=== PATIENT | male | born 2000 | race Caucasian/White ===

== ENCOUNTER 2024-06-10 14:08 | Inpatient (IN) ==
[2024-06-10] MEDS: SODIUM CHLORIDE 0.9% 1,000 ML IV SCH ×3 (14:23→18:03)
[2024-06-10] MEDS ORDERED: GLUCOSE 10 TAB/TUBE PO PRN (14:44)
[2024-06-10] MEDS ORDERED: DEXTROSE 50% 50 ML SYRINGE IV PRN (14:44)
[2024-06-10] MEDS ORDERED: GLUCAGON FOR INJ 1 MG VIAL SQ PRN (14:44)
[2024-06-10] MEDS ORDERED: CARBOHYDRATES FOR HYPOGLYCEMIA PO PRN (14:44)
[2024-06-10] MEDS ORDERED: GLUCOSE 40% GEL 15 GM TUBE PO PRN (14:44)
[2024-06-10 14:46] LABS: iSTAT Creatinine 1.4 mg/dl (0.6-1.3); iSTAT Hemoglobin 18.4 g/dl (14.0-18.0); iSTAT Ionized Calcium 1.08 mmol/l (1.12-1.32); iSTAT Potassium 6.1 mmol/L (3.3-5.0)
[2024-06-10 14:47] LABS: Hematocrit (blood only) 51.1 % (42.0-52.0); Hemoglobin 17.5 g/dl (14.0-18.0); Mean Corpuscular Hemoglobin 32.5 pg (25.0-34.0); Mean Corpuscular Hgb Conc 34.2 g/dL (32.0-36.0); Mean Platelet Volume 10.8 fL (9.4-12.4); Platelet Count 484 K/uL (130-400); RDW Coefficient of Variation 11.9 % (11.5-14.5); RDW Standard Deviation 41.4 fL (36.4-46.3); Red Blood Count 5.38 M/uL (4.70-6.10)
[2024-06-10 14:54] LABS: Oxygen Saturation VBG 67.3 %; PCO2 VBG 37 mmHg (38-50); PO2 VBG 49 mmHg
[2024-06-10 14:58] LABS: Basophils # (auto) 0.15 K/uL (0.00-0.20); Basophils % (auto) 0.4 %; Eosinophils # (auto) 0.03 K/uL (0.00-0.50); Eosinophils % (auto) 0.1 %; Immature Granulocytes # (auto) 0.68 K/uL (0.01-0.20); Immature Granulocytes % (auto) 1.8 %; Lymphocytes # (auto) 2.33 K/uL (1.20-3.40); Lymphocytes % (auto) 6.3 %; Monocytes # (auto) 3.53 K/uL (0.11-0.59); Monocytes % (auto) 9.5 %; Neutrophils # (auto) 30.28 K/uL (1.40-6.50); Neutrophils % (auto) 81.9 %
--- NOTE | 2024-06-10 15:02 | XRay Report ---
XR chest 1V portable CLINICAL HISTORY: Shortness of breath. Diabetic ketoacidosis. COMPARISON STUDY: No previous studies for comparison. FINDINGS: There is no pneumothorax or pleural effusion. There is mild asymmetric left lower lung opac ity. Right lung is clear. Cardiomediastinal silhouette is normal. IMPRESSION: Mild asymmetric left lower lung opacity. This may be technical. However, an infectious p rocess could appear similar. Follow-up PA and lateral chest radiographs could be obtained for further evaluation. ACT 112: Negative or not required by law. Electronically signed by: Kyler Hardy M.D. 06/10/2024 3:00 PM
[2024-06-10 15:03] LABS: pH VBG < 7.00 (7.36-7.41)
[2024-06-10] MEDS ORDERED: AZITHROMYCIN 500 MG VIAL IV ONE (15:09)
[2024-06-10 15:11] LABS: Alanine Aminotransferase 29 U/L (7-52); Albumin Globulin Ratio 1.7 (0.9-2); Albumin Level 5.3 gm/dl (3.4-5.0); Alkaline Phosphatase 106 U/L (34-104); Anion Gap 30 (3-11); BUN Creatinine Ratio 12.9 (10-20); Bilirubin,Total 0.5 mg/dl (0.2-1.0); Blood Urea Nitrogen 23 mg/dl (6-23); Calcium 9.1 mg/dl (8.6-10.3); Carbon Dioxide 8 mmol/L (21-32); Chloride 95 mmol/L (98-107); Creatinine Clr Calc Pharmacy 65.5 ml/min; Globulin 3.1 gm/dl (2.5-4.0); Glucose 551 mg/dl (70-99(Fasting)); Lipase 25 U/L (11-82); Magnesium 2.5 mg/dl (1.7-2.4); Phosphorus 9.3 mg/dl (2.5-4.9); Sodium 133 mmol/L (136-145); Total Protein 8.4 gm/dl (6.0-8.3); Troponin I High Sensitivity 17.4 pg/ml (0-20)
[2024-06-10] MEDS: NovoLIN-R INSULIN PER UNIT CHARGE IV STA (15:13)
[2024-06-10] MEDS: NovoLIN-R BOLUS FROM BAG IV ONE (15:17)
[2024-06-10] MEDS: cefTRIAXone SODIUM 2,000 MG/50 ML BAG IV STA (15:41)
[2024-06-10] MEDS: INSULIN REGULAR 250 UNITS in SODIUM CHLORIDE 0.9% 247.5 ML IV SCH (15:45)
[2024-06-10] MEDS: AZITHROMYCIN 500 MG in SODIUM CHLORIDE 0.9% 250 ML IV ONE (15:47)
[2024-06-10] MEDS: STAT IV Infusion **Titration per Protocol STA (15:49)
[2024-06-10] MEDS: DKA GOAL RANGE 150-250 mg/dl ONE (15:49)
[2024-06-10 15:53] LABS: iSTAT Creatinine 1.4 mg/dl (0.6-1.3); iSTAT Ionized Calcium 1.13 mmol/l (1.12-1.32); iSTAT Potassium 6.4 mmol/L (3.3-5.0)
[2024-06-10 16:10] LABS: Potassium 6.4 mmol/L (3.5-5.1)
--- NOTE | 2024-06-10 16:35 | Emergency Department Note ---
Impression & Plan DKA (diabetic ketoacidosis), Abnormal chest xray, High anion gap metabolic acidosis, Electrolyte disturbance, ARON (acute kidney injury) ED Provider Note NAME: FLAVIO KOVACS AGE: 24 SEX: M : 2000 ARRIVES VIA: Ambulance INFORMANT: Patient, ED PROVIDER(S): Joie Goddard MD CHIEF COMPLAINT: Chest pain, elevated glucose HPI: This is a 24-year-old male with history of type 1 diabetes presenting for elevated glucose and chest pain. Patient notes that he began having nauseousness and vomiting over the course of the night. He realized that his insulin pump was not working. He attempted to fix this but was unsuccessful. He notes he is breathing very rapidly and his chest are beginning to be sore. He notes his blood sugar on last check was over 500. He reports to be in DKA possibly 1 time when he was 15 but this is mild. Nothing like he is currently feeling. He reports feeling somewhat short of breath. No pleurisy. ROS: See above HPI for pertinent positives & negatives. A total of 10 systems reviewed and were otherwise negative. PAST MEDICAL HISTORY: See Below PAST SURGICAL HISTORY: See Below FAMILY HISTORY: See Below SOCIAL HISTORY: See Below HOME MEDICATIONS: See Below ALLERGIES: See Below VITALS: See Below PHYSICAL EXAMINATION: General: Extremis, Kussmaul respirations Head: Normocephalic and atraumatic Eyes: Normal inspection, extraocular muscles intact Ear, nose, throat: Normal external exam Neck: Normal range of motion Respiratory: lungs clear to auscultation bilaterally, tachypneic Cardiovascular: Tachycardic regular rate/rhythm, no murmur GI: soft, nontender, no guarding or rebound Extremities: nontender, moves all extremities Neuro: The patient awake and alert, appropriately conversive, no focal deficits, symmetric faces Skin: Warm, dry, and intact MEDICAL DECISION MAKING: This is a 24-year-old male with history of type 1 diabetes managed for elevated glucose/chest pain. High concern for DKA clinically as patient is glucose is 508 on arrival. He is having significant Kussmaul respirations -[id number] BMP does reveal signs of DKA with initial glucose of 533, anion gap of 24, potassium 6.1 with a corrected sodium of 144. Initial CO2 was 8. -This time we will give fluid resuscitation, 2 L right off the bat. Will give IV insulin bolus and drip. -Patient IV insulin bolus however the lab BMP has hemolyzed potassium. A second [id number] BMP reveals a potassium out of 6.4, glucose is slight downtrending at 479. Anion gap is stable at 23. CO2 downtrending to 7 unfortunately -BMP returns with a CO2 of 8, potassium of 6.4 anion gap of 30. -After 3 L total normal saline as well as IV insulin bolus and drip, patient is appear to be improving. He is still fairly tachypneic but having improved symptoms. He feels better in his chest. Otherwise his heart rate is downtrending from 135 down to 122. -Chest x-ray is read as showing asymmetric opacity possibly concerning for infectious etiology. Will give ceftriaxone and azithromycin out of concern for pneumonia and sepsis. Blood cultures been sent prior to this. In addition has CBC does reveal leukocytosis to over 37. -Care discussed Dr. Hanley, ICU physician who recommends bicarb -Patient given bicarb. -Discussed care with Dr. Alejandra, hospitalist for admission Differential diagnosis: DKA, ACS, PE, pneumonia, sepsis Independent History obtained from: Friend/roommate Diagnostics interpreted by me: ECG: ECG independently interpreted by me with sinus tachycardia rate of 132, normal AL, normal QRS, normal QTc, no ST segment elevations consistent with STEMI criteria Cardiac Monitoring: An order was placed for continuous cardiac monitoring. The monitor shows a rate of 125 with sinus rhythm. Critical Care Note: I have personally spent 90 minutes of critical care time in the direct management of this patient. This includes bedside care, interpretation of diagnostic studies, and testing, discussion with consultants, patient, and family members, and other required patient management activities. This 90 minutes is in excess of all separately billable procedures. Past Med/Surg History Problem List (Updated 06/10/24 @ 21:58 by Joie Goddard MD) Electrolyte disturbance (Acute) High anion gap metabolic acidosis (Acute) Abnormal chest xray (Acute) ARON (acute kidney injury) (Acute) DKA (diabetic ketoacidosis) (Acute) Medical History Type 1 diabetes No known health problems Family History Other No known health problems Social History Smoking Status: Never smoker Tobacco Type: Smokeless Tobacco (Dip or Chew) Do You Dip or Chew Tobacco: No (Pt quit about a year ago); Hx Alcohol Use: Yes Alcohol type: beer Hx Substance Use: No Preferred Language: Portuguese Communication Ability: Effective Stonemason Required: No Beliefs That Will Affect Care: None Current Living Situation: Other Current Living Situation Comment: Pt lives with his room mate and his dog Feels Safe at Home: Yes Assistive Devices: None Allergies Allergies Allergy/AdvReac Type Severity Reaction Status Date / Time No Known Allergies Allergy Unverified 06/10/24 16:27 Home Meds Home Medications Medication Instructions Recorded Confirmed insulin aspart U-100 100 unit/mL 1 sliding scale dose continuous 06/10/24 06/10/24 subcutaneous solution (Novolog subcutaneous infusion USEASDIRECTD U-100 Insulin aspart) Results & Data (ED) Vital Signs Vital Signs - 24 hr 06/10/24 14:18 06/10/24 14:23 06/10/24 14:24 Temperature 36.7 C Temperature Source Oral Pulse Rate 132 H Pulse Rate from SpO2 Sensor Respiratory Rate 20 Blood Pressure 193/118 H 180/115 H Blood Pressure Mean 143 130 Pulse Oximetry 99 99 Oxygen Delivery Method Room Air Room Air Sepsis Recent Fever Within 48 Hours No Sepsis New/Unexplained Change in Mental Status N/A Sepsis Action Taken by Nursing No Action Required 06/10/24 14:27 06/10/24 14:28 06/10/24 14:30 Temperature Temperature Source Pulse Rate 134 H 135 H Pulse Rate from SpO2 Sensor Respiratory Rate 22 Blood Pressure 179/119 H Blood Pressure Mean 143 Pulse Oximetry 100 Oxygen Delivery Method Room Air Sepsis Recent Fever Within 48 Hours Sepsis New/Unexplained Change in Mental Status Sepsis Action Taken by Nursing 06/10/24 14:45 06/10/24 15:00 06/10/24 15:09 Temperature Temperature Source Pulse Rate 125 H 130 H Pulse Rate from SpO2 Sensor Respiratory Rate 34 H 39 H Blood Pressure 186/112 H Blood Pressure Mean 143 Pulse Oximetry 100 99 Oxygen Delivery Method Room Air Room Air Sepsis Recent Fever Within 48 Hours Sepsis New/Unexplained Change in Mental Status Sepsis Action Taken by Nursing 06/10/24 15:18 06/10/24 15:30 06/10/24 15:36 Temperature Temperature Source Pulse Rate 133 H 133 H Pulse Rate from SpO2 Sensor Respiratory Rate 30 H 36 H Blood Pressure 196/116 H Blood Pressure Mean 132 Pulse Oximetry Oxygen Delivery Method Sepsis Recent Fever Within 48 Hours Sepsis New/Unexplained Change in Mental Status Sepsis Action Taken by Nursing 06/10/24 15:36 06/10/24 15:45 06/10/24 15:51 Temperature Temperature Source Pulse Rate 131 H 128 H Pulse Rate from SpO2 Sensor 127 H Respiratory Rate 31 H 37 H Blood Pressure 200/118 H Blood Pressure Mean 126 Pulse Oximetry 99 99 Oxygen Delivery Method Room Air Sepsis Recent Fever Within 48 Hours Sepsis New/Unexplained Change in Mental Status Sepsis Action Taken by Nursing 06/10/24 16:00 06/10/24 16:09 06/10/24 16:12 Temperature Temperature Source Pulse Rate 123 H 123 H Pulse Rate from SpO2 Sensor Respiratory Rate 32 H 38 H Blood Pressure 178/120 H Blood Pressure Mean 139 Pulse Oximetry 99 99 Oxygen Delivery Method Sepsis Recent Fever Within 48 Hours Sepsis New/Unexplained Change in Mental Status Sepsis Action Taken by Nursing 06/10/24 16:21 06/10/24 16:30 06/10/24 17:03 Temperature Temperature Source Pulse Rate 123 H 123 H Pulse Rate from SpO2 Sensor 122 H Respiratory Rate 24 22 Blood Pressure 169/104 H 171/110 H Blood Pressure Mean 110 130 Pulse Oximetry 100 99 Oxygen Delivery Method Room Air Room Air Sepsis Recent Fever Within 48 Hours Sepsis New/Unexplained Change in Mental Status Sepsis Action Taken by Nursing Laboratory Data 06/10/24 14:15 06/10/24 18:58 Lab Results 06/10/24 06/10/24 06/10/24 Range/Units 14:15 14:15 14:15 WBC 37.00 H* (4.8-10.8) K/ul RBC 5.38 (4.70-6.10) M/uL Hgb 17.5 (14.0-18.0) g/dl POC Hgb (14.0-18.0) g/dl Hct 51.1 (42.0-52.0) % POC Hct (42-52) % MCV 95.0 (80.0-100.0) fL MCH 32.5 (25.0-34.0) pg MCHC 34.2 (32.0-36.0) g/dL RDW Std Deviation 41.4 (36.4-46.3) fL RDW Coeff of Radha 11.9 (11.5-14.5) % Plt Count 484 H (130-400) K/uL MPV 10.8 (9.4-12.4) fL Immature Gran % (Auto) 1.8 % Neut % (Auto) 81.9 % Lymph % (Auto) 6.3 % [place] % (Auto) 9.5 % Eos % (Auto) 0.1 % Baso % (Auto) 0.4 % Neut # (Auto) 30.28 H (1.40-6.50) K/uL Lymph # (Auto) 2.33 (1.20-3.40) K/uL [place] # (Auto) 3.53 H (0.11-0.59) K/uL Eos # (Auto) 0.03 (0.00-0.50) K/uL Baso # (Auto) 0.15 (0.00-0.20) K/uL Immature Gran # (Auto) 0.68 H (0.01-0.20) K/uL VBG pH (7.36-7.41) VBG pCO2 (38-50) mmHg VBG pO2 mmHg VBG HCO3 mmol/L VBG O2 Saturation % VBG Base Excess mEq/L POC Sodium (135-144) mmol/L Sodium 133 L (136-145) mmol/L POC Potassium (3.3-5.0) mmol/L Potassium TNP POC Chloride (101-112) mmol/L Chloride 95 L (98-107) mmol/L Carbon Dioxide 8 L* (21-32) mmol/L POC Total CO2 (24-31) mmol/L Anion Gap 30 H (3-11) POC Anion Gap (16-25) mmol/L POC BUN (7-18) mg/dl BUN 23 (6-23) mg/dl Creatinine 1.78 H (0.6-1.4) mg/dl POC Creatinine (0.6-1.3) mg/dl Est Cr Clr Drug Dosing 65.5 ml/min eGFR 53.62 BUN/Creatinine Ratio 12.9 (10-20) Glucose 551 H* (70-99(Fasting)) mg/dl POC Glucose 508 H* (70-99) mg/dl POC Glucose (other) (70-99) mg/dl Estimat Average Glucose 263 266 mg/dl Hemoglobin A1c 10.8 H 10.9 H (4.5-5.6) % Lactate (0.4-2.0) mmol/L Calcium 9.1 (8.6-10.3) mg/dl POC Ioniz Calcium Michael (1.12-1.32) mmol/l Phosphorus 9.3 H (2.5-4.9) mg/dl Magnesium 2.5 H (1.7-2.4) mg/dl Total Bilirubin 0.5 (0.2-1.0) mg/dl AST TNP ALT 29 (7-52) U/L Alkaline Phosphatase 106 H (34-104) U/L Troponin I High Sens 17.4 (0-20) pg/ml Total Protein 8.4 H (6.0-8.3) gm/dl Albumin 5.3 H (3.4-5.0) gm/dl Globulin 3.1 (2.5-4.0) gm/dl Albumin/Globulin Ratio 1.7 (0.9-2) Lipase 25 (11-82) U/L Procalcitonin 2.41 H (0-0.5) ng/ml Adenovirus (PCR) (NotDetected) B. pertussis DNA (PCR) (NotDetected) B.parapertussis DNA PCR (NotDetected) C. pneumoniae DNA (PCR) (NotDetected) Coronavirus OC43 (PCR) (NotDetected) Coronavirus HKU1 (PCR) (NotDetected) Coronavirus 229E (PCR) (NotDetected) SARS-CoV-2 (PCR) (NotDetected) Coronavirus NL63 (PCR) (NotDetected) Human Metapneumovir PCR (NotDetected) Influenza Type A (PCR) (NotDetected) Influenza Type B (PCR) (NotDetected) M. pneumoniae (PCR) (NotDetected) Parainfluenza 1 (PCR) (NotDetected) Parainfluenza 2 (PCR) (NotDetected) Parainfluenza 3 (PCR) (NotDetected) Parainfluenza 4 (PCR) (NotDetected) RSV (PCR) (NotDetected) Entero/Rhino (PCR) (NotDetected) 06/10/24 06/10/24 06/10/24 Range/Units 14:17 14:34 15:26 WBC (4.8-10.8) K/ul RBC (4.70-6.10) M/uL Hgb (14.0-18.0) g/dl POC Hgb 18.4 H (14.0-18.0) g/dl Hct (42.0-52.0) % POC Hct 54 H (42-52) % MCV (80.0-100.0) fL MCH (25.0-34.0) pg MCHC (32.0-36.0) g/dL RDW Std Deviation (36.4-46.3) fL RDW Coeff of Radha (11.5-14.5) % Plt Count (130-400) K/uL MPV (9.4-12.4) fL Immature Gran % (Auto) % Neut % (Auto) % Lymph % (Auto) % [place]ima % (Auto) % Eos % (Auto) % Baso % (Auto) % Neut # (Auto) (1.40-6.50) K/uL Lymph # (Auto) (1.20-3.40) K/uL [place] # (Auto) (0.11-0.59) K/uL Eos # (Auto) (0.00-0.50) K/uL Baso # (Auto) (0.00-0.20) K/uL Immature Gran # (Auto) (0.01-0.20) K/uL VBG pH < 7.00 L (7.36-7.41) VBG pCO2 37 L (38-50) mmHg VBG pO2 49 mmHg VBG HCO3 mmol/L VBG O2 Saturation 67.3 % VBG Base Excess mEq/L POC Sodium 134 L (135-144) mmol/L Sodium (136-145) mmol/L POC Potassium 6.1 H* (3.3-5.0) mmol/L Potassium POC Chloride 109 (101-112) mmol/L Chloride (98-107) mmol/L Carbon Dioxide (21-32) mmol/L POC Total CO2 8 L* (24-31) mmol/L Anion Gap (3-11) POC Anion Gap 24.0 (16-25) mmol/L POC BUN 28 H (7-18) mg/dl BUN (6-23) mg/dl Creatinine (0.6-1.4) mg/dl POC Creatinine 1.4 H (0.6-1.3) mg/dl Est Cr Clr Drug Dosing ml/min eGFR BUN/Creatinine Ratio (10-20) Glucose (70-99(Fasting)) mg/dl POC Glucose 493 H* (70-99) mg/dl POC Glucose (other) 533 H* (70-99) mg/dl Estimat Average Glucose mg/dl Hemoglobin A1c (4.5-5.6) % Lactate (0.4-2.0) mmol/L Calcium (8.6-10.3) mg/dl POC Ioniz Calcium Michael 1.08 L (1.12-1.32) mmol/l Phosphorus (2.5-4.9) mg/dl Magnesium (1.7-2.4) mg/dl Total Bilirubin (0.2-1.0) mg/dl AST ALT (7-52) U/L Alkaline Phosphatase (34-104) U/L Troponin I High Sens (0-20) pg/ml Total Protein (6.0-8.3) gm/dl Albumin (3.4-5.0) gm/dl Globulin (2.5-4.0) gm/dl Albumin/Globulin Ratio (0.9-2) Lipase (11-82) U/L Procalcitonin (0-0.5) ng/ml Adenovirus (PCR) (NotDetected) B. pertussis DNA (PCR) (NotDetected) B.parapertussis DNA PCR (NotDetected) C. pneumoniae DNA (PCR) (NotDetected) Coronavirus OC43 (PCR) (NotDetected) Coronavirus HKU1 (PCR) (NotDetected) Coronavirus 229E (PCR) (NotDetected) SARS-CoV-2 (PCR) (NotDetected) Coronavirus NL63 (PCR) (NotDetected) Human Metapneumovir PCR (NotDetected) Influenza Type A (PCR) (NotDetected) Influenza Type B (PCR) (NotDetected) M. pneumoniae (PCR) (NotDetected) Parainfluenza 1 (PCR) (NotDetected) Parainfluenza 2 (PCR) (NotDetected) Parainfluenza 3 (PCR) (NotDetected) Parainfluenza 4 (PCR) (NotDetected) RSV (PCR) (NotDetected) Entero/Rhino (PCR) (NotDetected) 06/10/24 06/10/24 06/10/24 Range/Units 15:35 15:37 15:39 WBC (4.8-10.8) K/ul RBC (4.70-6.10) M/uL Hgb (14.0-18.0) g/dl POC Hgb 18.0 (14.0-18.0) g/dl Hct (42.0-52.0) % POC Hct 53 H (42-52) % MCV (80.0-100.0) fL MCH (25.0-34.0) pg MCHC (32.0-36.0) g/dL RDW Std Deviation (36.4-46.3) fL RDW Coeff of Radha (11.5-14.5) % Plt Count (130-400) K/uL MPV (9.4-12.4) fL Immature Gran % (Auto) % Neut % (Auto) % Lymph % (Auto) % [place] % (Auto) % Eos % (Auto) % Baso % (Auto) % Neut # (Auto) (1.40-6.50) K/uL Lymph # (Auto) (1.20-3.40) K/uL [place] # (Auto) (0.11-0.59) K/uL Eos # (Auto) (0.00-0.50) K/uL Baso # (Auto) (0.00-0.20) K/uL Immature Gran # (Auto) (0.01-0.20) K/uL VBG pH (7.36-7.41) VBG pCO2 (38-50) mmHg VBG pO2 mmHg VBG HCO3 mmol/L VBG O2 Saturation % VBG Base Excess mEq/L POC Sodium 133 L (135-144) mmol/L Sodium (136-145) mmol/L POC Potassium 6.4 H* (3.3-5.0) mmol/L Potassium 6.4 H* POC Chloride 110 (101-112) mmol/L Chloride (98-107) mmol/L Carbon Dioxide (21-32) mmol/L POC Total CO2 7 L* (24-31) mmol/L Anion Gap (3-11) POC Anion Gap 23.0 (16-25) mmol/L POC BUN 21 H (7-18) mg/dl BUN (6-23) mg/dl Creatinine (0.6-1.4) mg/dl POC Creatinine 1.4 H (0.6-1.3) mg/dl Est Cr Clr Drug Dosing ml/min eGFR BUN/Creatinine Ratio (10-20) Glucose (70-99(Fasting)) mg/dl POC Glucose (70-99) mg/dl POC Glucose (other) 479 H* (70-99) mg/dl Estimat Average Glucose mg/dl Hemoglobin A1c (4.5-5.6) % Lactate 5.3 H* (0.4-2.0) mmol/L Calcium (8.6-10.3) mg/dl POC Ioniz Calcium Michael 1.13 (1.12-1.32) mmol/l Phosphorus (2.5-4.9) mg/dl Magnesium (1.7-2.4) mg/dl Total Bilirubin (0.2-1.0) mg/dl AST 27 ALT (7-52) U/L Alkaline Phosphatase (34-104) U/L Troponin I High Sens (0-20) pg/ml Total Protein (6.0-8.3) gm/dl Albumin (3.4-5.0) gm/dl Globulin (2.5-4.0) gm/dl Albumin/Globulin Ratio (0.9-2) Lipase (11-82) U/L Procalcitonin (0-0.5) ng/ml Adenovirus (PCR) (NotDetected) B. pertussis DNA (PCR) (NotDetected) B.parapertussis DNA PCR (NotDetected) C. pneumoniae DNA (PCR) (NotDetected) Coronavirus OC43 (PCR) (NotDetected) Coronavirus HKU1 (PCR) (NotDetected) Coronavirus 229E (PCR) (NotDetected) SARS-CoV-2 (PCR) (NotDetected) Coronavirus NL63 (PCR) (NotDetected) Human Metapneumovir PCR (NotDetected) Influenza Type A (PCR) (NotDetected) Influenza Type B (PCR) (NotDetected) M. pneumoniae (PCR) (NotDetected) Parainfluenza 1 (PCR) (NotDetected) Parainfluenza 2 (PCR) (NotDetected) Parainfluenza 3 (PCR) (NotDetected) Parainfluenza 4 (PCR) (NotDetected) RSV (PCR) (NotDetected) Entero/Rhino (PCR) (NotDetected) 06/10/24 06/10/24 Range/Units 15:41 16:49 WBC (4.8-10.8) K/ul RBC (4.70-6.10) M/uL Hgb (14.0-18.0) g/dl POC Hgb (14.0-18.0) g/dl Hct (42.0-52.0) % POC Hct (42-52) % MCV (80.0-100.0) fL MCH (25.0-34.0) pg MCHC (32.0-36.0) g/dL RDW Std Deviation (36.4-46.3) fL RDW Coeff of Radha (11.5-14.5) % Plt Count (130-400) K/uL MPV (9.4-12.4) fL Immature Gran % (Auto) % Neut % (Auto) % Lymph % (Auto) % [place] % (Auto) % Eos % (Auto) % Baso % (Auto) % Neut # (Auto) (1.40-6.50) K/uL Lymph # (Auto) (1.20-3.40) K/uL [place] # (Auto) (0.11-0.59) K/uL Eos # (Auto) (0.00-0.50) K/uL Baso # (Auto) (0.00-0.20) K/uL Immature Gran # (Auto) (0.01-0.20) K/uL VBG pH (7.36-7.41) VBG pCO2 (38-50) mmHg VBG pO2 mmHg VBG HCO3 mmol/L VBG O2 Saturation % VBG Base Excess mEq/L POC Sodium (135-144) mmol/L Sodium (136-145) mmol/L POC Potassium (3.3-5.0) mmol/L Potassium POC Chloride (101-112) mmol/L Chloride (98-107) mmol/L Carbon Dioxide (21-32) mmol/L POC Total CO2 (24-31) mmol/L Anion Gap (3-11) POC Anion Gap (16-25) mmol/L POC BUN (7-18) mg/dl BUN (6-23) mg/dl Creatinine (0.6-1.4) mg/dl POC Creatinine (0.6-1.3) mg/dl Est Cr Clr Drug Dosing ml/min eGFR BUN/Creatinine Ratio (10-20) Glucose (70-99(Fasting)) mg/dl POC Glucose 384 H* (70-99) mg/dl POC Glucose (other) (70-99) mg/dl Estimat Average Glucose mg/dl Hemoglobin A1c (4.5-5.6) % Lactate (0.4-2.0) mmol/L Calcium (8.6-10.3) mg/dl POC Ioniz Calcium Michael (1.12-1.32) mmol/l Phosphorus (2.5-4.9) mg/dl Magnesium (1.7-2.4) mg/dl Total Bilirubin (0.2-1.0) mg/dl AST ALT (7-52) U/L Alkaline Phosphatase (34-104) U/L Troponin I High Sens (0-20) pg/ml Total Protein (6.0-8.3) gm/dl Albumin (3.4-5.0) gm/dl Globulin (2.5-4.0) gm/dl Albumin/Globulin Ratio (0.9-2) Lipase (11-82) U/L Procalcitonin (0-0.5) ng/ml Adenovirus (PCR) Not Detected (NotDetected) B. pertussis DNA (PCR) Not Detected (NotDetected) B.parapertussis DNA PCR Not Detected (NotDetected) C. pneumoniae DNA (PCR) Not Detected (NotDetected) Coronavirus OC43 (PCR) Not Detected (NotDetected) Coronavirus HKU1 (PCR) Not Detected (NotDetected) Coronavirus 229E (PCR) Not Detected (NotDetected) SARS-CoV-2 (PCR) Not Detected (NotDetected) Coronavirus NL63 (PCR) Not Detected (NotDetected) Human Metapneumovir PCR Not Detected (NotDetected) Influenza Type A (PCR) Not Detected (NotDetected) Influenza Type B (PCR) Not Detected (NotDetected) M. pneumoniae (PCR) Not Detected (NotDetected) Parainfluenza 1 (PCR) Not Detected (NotDetected) Parainfluenza 2 (PCR) Not Detected (NotDetected) Parainfluenza 3 (PCR) Not Detected (NotDetected) Parainfluenza 4 (PCR) Not Detected (NotDetected) RSV (PCR) Not Detected (NotDetected) Entero/Rhino (PCR) Not Detected (NotDetected) Administered Medications Enoxaparin Sodium (Enoxaparin Inj 40 Mg/0.4 Ml Syr) 40 mg SQ Q24H [facility] Stop: 07/10/24 19:59 Last Admin: 06/10/24 20:01 Dose: 40 mg Documented By: VANESSA Insulin Human Regular 250 (units/ Sodium Chloride) 250 mls @ 6.2 mls/hr IV .Q24H [facility]; Protocol Stop: 07/10/24 14:44 Last Titration: 06/10/24 21:04 Dose: 6.2 units/hr, 6.2 mls/hr Documented By: VANESSA Co-signed By: TMG Titration: 06/10/24 19:53 Dose: 7.7 units/hr, 7.7 mls/hr Documented By: SG Co-signed By: CF Titration: 06/10/24 19:09 Dose: 7.7 units/hr, 7.7 mls/hr Documented By: DMBryon Co-signed By: ARMINDA Titration: 06/10/24 17:58 Dose: 7.7 units/hr, 7.7 mls/hr Documented By: HMS Co-signed By: JUNE Titration: 06/10/24 16:53 Dose: 9.6 units/hr, 9.6 mls/hr Documented By: MIKE Co-signed By: JUNE Admin: 06/10/24 15:45 Dose: 8 units/hr, 8 mls/hr Documented By: ML Co-signed By: [facility] Potassium Chloride 40 meq/ (Dextrose/Sodium Chloride) 1,000 ml in 1,020 mls @ 175 mls/hr IV .Q5H50M [facility] Stop: 07/10/24 20:59 Last Admin: 06/10/24 21:20 Dose: 175 mls/hr Documented By: SG Insulin Aspart (Insulin Aspart Per Unit Charge) 0 units SC ACHS [facility] Stop: 07/10/24 16:29 Last Admin: 06/10/24 21:24 Dose: Not Given Documented By: Admin: 06/10/24 17:42 Dose: Not Given Documented By: [facility] [place] Co-signed By: JUNE Discontinued Medications Sodium Chloride (Nss) 1,000 mls @ 999 mls/hr IV .Q1H1M [facility] Stop: 06/10/24 16:30 Last Infusion: 06/10/24 16:41 Dose: Infused Documented By: [facility] Admin: 06/10/24 14:47 Dose: 999 mls/hr Documented By: Infusion: 06/10/24 14:47 Dose: Infused Documented By: Admin: 06/10/24 14:23 Dose: 999 mls/hr Documented By: ML Ceftriaxone Sodium (Rocephin) 2,000 mg in 50 mls @ 100 mls/hr IV NOW STA Stop: 06/10/24 15:38 Last Infusion: 06/10/24 16:05 Dose: Infused Documented By: [facility] Admin: 06/10/24 15:41 Dose: 100 mls/hr Documented By: ML Azithromycin 500 mg/ Sodium (Chloride) 255 mls @ 127.5 mls/hr IV NOW ONE Stop: 06/10/24 17:29 Last Infusion: 06/10/24 18:36 Dose: Infused Documented By: [facility] Admin: 06/10/24 15:47 Dose: 127.5 mls/hr Documented By: ML Sodium Chloride (Nss) 1,000 mls @ 999 mls/hr IV .Q1H1M [facility] Stop: 06/10/24 17:24 Last Infusion: 06/10/24 18:10 Dose: Infused Documented By: [facility] Admin: 06/10/24 16:41 Dose: 999 mls/hr Documented By: [facility] Sodium Chloride (Nss) 1,000 mls @ 250 mls/hr IV .Q4H [facility] Stop: 06/11/24 17:14 Last Infusion: 06/10/24 21:42 Dose: Infused Documented By: Admin: 06/10/24 18:03 Dose: 250 mls/hr Documented By: [facility] [place] Piperacillin Sod/Tazobactam Sod (Zosyn) 4.5 gm in 100 mls @ 200 mls/hr IV NOW STA; Protocol Stop: 06/10/24 17:48 Last Infusion: 06/10/24 19:05 Dose: Infused Documented By: Admin: 06/10/24 18:00 Dose: 200 mls/hr Documented By: GAYE Sodium Chloride (Nss) 500 mls @ 999 mls/hr IV .Q31M ONE Stop: 06/10/24 20:19 Last Infusion: 06/10/24 21:56 Dose: Infused Documented By: Admin: 06/10/24 21:20 Dose: 999 mls/hr Documented By: VANESSA Insulin Human Regular (Novolin-R Bolus From Bag) 8 units IV ONE ONE Stop: 06/10/24 15:16 Last Admin: 06/10/24 15:17 Dose: Not Given Documented By: AAKASH Insulin Human Regular (Novolin-R Insulin Per Unit Charge) 8 units IV NOW STA Stop: 06/10/24 15:11 Last Admin: 06/10/24 15:13 Dose: 8 units Documented By: AAKASH Co-signed By: JARED Martínez (Stat Iv Infusion Titration Per Protocol) 1 each N/A NOW STA Stop: 06/10/24 14:45 Last Admin: 06/10/24 15:49 Dose: Not Given Documented By: MIKE Miscellaneous (Dka Goal Range 150-250 Mg/Dl) 1 each N/A ONE ONE Stop: 06/10/24 14:45 Last Admin: 06/10/24 15:49 Dose: Not Given Documented By: MIKE Sodium Bicarbonate (Sodium Bicarb 8.4% Inj 50 Meq/50 Ml Syr) 50 meq IV NOW STA Stop: 06/10/24 16:43 Last Admin: 06/10/24 16:51 Dose: 50 meq Documented By: MIKE Imaging Data Radiologist's Impression: Chest X-Ray 06/10/24 14:18 XR chest 1V portable CLINICAL HISTORY: Shortness of breath. Diabetic ketoacidosis. COMPARISON STUDY: No previous studies for comparison. FINDINGS: There is no pneumothorax or pleural effusion. There is mild asymmetric left lower lung opacity. Right lung is clear. Cardiomediastinal silhouette is normal. IMPRESSION: Mild asymmetric left lower lung opacity. This may be technical. However, an infectious process could appear similar. Follow-up PA and lateral chest radiographs could be obtained for further evaluation. ACT 112: Negative or not required by law. Electronically signed by: Kyler Hardy M.D. 06/10/2024 3:00 PM Discharge Plan Visit Data Chief Complaint: Hyperglycemia Stated Complaint: SOB, HYPERGLYCEMIA ED Provider: Joie Goddard Discharge Problem: DKA (diabetic ketoacidosis), Abnormal chest xray, High anion gap metabolic acidosis, Electrolyte disturbance, ARON (acute kidney injury) Patient Disposition: Admitted As Inpatient Discharge Instructions Interventions: ED Discharge Assessment Last Done: 06/10/24 18:17
[2024-06-10 16:40] LABS: Adenovirus PCR Not Detected (NotDetected); Bordetella parapertussis PCR Not Detected (NotDetected); Bordetella pertussis PCR Not Detected (NotDetected); Chlamydia pneumoniae PCR Not Detected (NotDetected); Coronavirus 229E PCR Not Detected (NotDetected); Coronavirus CoV-2 (COVID19)PCR Not Detected (NotDetected); Coronavirus HKU1 PCR Not Detected (NotDetected); Coronavirus NL63 PCR Not Detected (NotDetected); Coronavirus OC43PCR Not Detected (NotDetected); Human Metapneumovirus PCR Not Detected (NotDetected); Influenza A PCR Not Detected (NotDetected); Influenza B PCR Not Detected (NotDetected); Mycoplasma pneumoniae PCR Not Detected (NotDetected); Parainfluenza Virus 1 PCR Not Detected (NotDetected); Parainfluenza Virus 2 PCR Not Detected (NotDetected); Parainfluenza Virus 3 PCR Not Detected (NotDetected); Parainfluenza Virus 4 PCR Not Detected (NotDetected); Respiratory Syncytial VirusPCR Not Detected (NotDetected); Rhinovirus/Enterovirus PCR Not Detected (NotDetected)
[2024-06-10 16:49] LABS: Estimated Average Glucose 263 mg/dl; Hemoglobin A1C 10.8 % (4.5-5.6)
[2024-06-10] MEDS: SODIUM BICARB 8.4% INJ 50 MEQ/50 ML SYR IV STA (16:51)
--- NOTE | 2024-06-10 16:54 | History & Physical Report ---
Date of Service June 10, 2024 Assessment & Plan (1) DKA (diabetic ketoacidosis): (2) High anion gap metabolic acidosis: (3) ARON (acute kidney injury): Plan Mr. Maciel is a 24 year old gentleman with past medical history remarkable for DMTI on insulin pump and hypertension to be admitted to ICU for management of DKA Given lack of pcp and reported issues with insulin pump, would question med compliance as possible contributing cause. Reports sick contact at work 1 week ago, therefore infection possible contributor to DKA # Diabetic Ketoacidosis SOB, chest pain, nausea, diarrhea, found to have significant hyperglycemia. pH <7, AG 30, suspect med inadherence and possible infectious symptoms v just 2/2 DKA; low concern WI. No history of heart failure or evidence of volume overload. -Biofire negative - Trend CBC, CMP, VBG - UA, Utox ordered - CXR with LLL opacity, chest xray stable - BCx pending, MRSA swab ordered - Troponin 17.4 - A1c 10.8% - Empiric zosyn for now - Monitor K - DKA protocol insulin drip - s/p NaHCO3 for pH<7 - IVF: s/p NS 1L/hr x 4h; starting NS 250/hr - Holding Home insulin regimen: graphics artist consulted #Leukocytosis Biofire neg, WBC 30, reports of GI symptoms though potentially iso DKA--exam benign therefore will hold on further imaginge CXR with opacity, but non apparent on ct chest continue empirics follow blood cultures anticipate prompt resolution with rehydration #ARON cr 1.78 likely iso dehydration 2/2 DKA repeat BMP and fluid resuscitation #HTN Reportedly on lisinopril Consider antihypertensive as clinical course stabilizes and elevated bp at this time likley iso resp distress DVT lovenox Full code Admit ICU Admission and Anticipated Discharge Date Admission Date: Time spent evaluating patient, direct bedside care, chart review, placing orders, interpretation of diagnostic studies, discussion with consultants, patient, and family members, as well as other required patient management activities is 60 minutes. History of Present Illness Chief Complaint: SOB Primary Care Provider: NO PCP Mr. Maciel is a 24 year old gentleman with past medical history remarkable for DMTI on insulin pump and hypertension presented to [facility] ED due to SOB. Patient states that over last 24 hours he has been more SOB. He states that he also experienced some nausea and diarrhea, but ultimately he began to feel like he could not catch his breath.He denies fevers, cough, myalgias, or other clear symptoms. He does not have a PCP. 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 He states that he knows his regimen isn't as "tight as it should be" because his last A1C was reported 9% He notes that he did have difficult getting his pump to fit in the last 24 hours. Patient also reports chest pain that occurred shortly after the SOB started. He denies any increased thirst or polyuria. He also reports history of HTN. He does not take his lisinopril any longer as previously prescribed, stating that the supplements with "chagas" and "lion mulu" mushrooms. Roommate at bedside stating patient appears much improved in comparison to arrival. History limited 2/2 SOB Denies tobacco use; reports social etoh use; denies any other substance use In the ED, vitals were notable for BP of 140-200, HR of 110-130, and O2 sat of high 90s on RA . Imaging revealed CXR with LLL opacity, CT chest however unremarkable WBC 37 with shift, VBG <7.0, PCO2 37, NA 133, K 6.4 EKG sinus tachy, poor baseline likely 2/2 labored breathing qtc 447 ED interventions: 4 L IVF, ctx, azithro, bicarb 50meq Consultants: Bag Bleacher Patient to be admitted to ICU for further evaluation and management of severe DKA Allergies Allergy/AdvReac Type Severity Reaction Status Date / Time No Known Allergies Allergy Unverified 06/10/24 16:27 Home Medications Medication Instructions Recorded Confirmed Type insulin aspart U-100 100 unit/mL 1 sliding scale dose continuous 06/10/24 06/10/24 History subcutaneous solution (Novolog subcutaneous infusion USEASDIRECTD U-100 Insulin aspart) Past Med/Surg History Problem List Electrolyte disturbance High anion gap metabolic acidosis Abnormal chest xray ARON (acute kidney injury) DKA (diabetic ketoacidosis) Medical History Type 1 diabetes No known health problems Family History Other No known health problems Social History Smoking Status: Never smoker Preferred Language: Ukrainian Feels Safe at Home: Yes Review of Systems Review of Systems: Constitutional: (-) fever/chills, (-) recent loss of weight, (-) appetite changes, (-) night sweats. Head: (-) headache, (-) dizziness. Eye: (-) blurring of vision, (-) double vision, (-) redness. Ear: (-) hearing loss, (-) discharge, (-) vertigo Nose: (-) discharge, (-) bleeding, (-) congestion, (-) post nasal drip. Throat: (-) sore throat, (-) hoarseness of voice, (-) odynophagia. Cardiovascular: (+) chest pain, (-) palpitations, (-) syncope, (-) orthopnea, (- ) PND, (-) leg swelling. Respiratory: (++) shortness of breath, (-) cough, (-) wheezing, (-) hemoptysis. Neuro: (-) weakness in extremities, (-) numbness, (-) tingling, (-) tremor. Gastrointestinal: (-) belly pain, (-) belly distension, (+) nausea, (-) vomiting, (+) diarrhea, (-) constipation, Genitourinary: (-) hematuria, (-) dysuria, (-) polyuria, (-) hesitancy, (-) frequency, (-) urinary incontinence. Musculoskeletal: (-) myalgia, (-) arthralgia. Skin: (-) rashes. Endocrine: (-) heat/cold intolerance. Psychiatry: (-) depression, (-) hallucination. Physical Exam Physical Exam: GENERAL APPEARANCE: AxOx4, uncomfortable, labored breathing HEENT: NC, AT. MMM. EOMI, clear conjunctiva, oropharynx clear. NECK: Supple without lymphadenopathy. No stiffness or restricted ROM. HEART: tachycardic LUNGS: CTAB, labored, tachypneic ABDOMEN: Soft, nontender, nondistended with good bowel sounds heard. EXTREMITIES: Without cyanosis, clubbing or edema. NEUROLOGICAL: Grossly nonfocal. Alert and oriented, moving all 4 extremities. CN not formally tested but appear grossly intact Skin: Warm and dry without any rash. Results & Data Results & Data Vital Signs (Past 12 Hours) Vital Signs Temp Pulse Resp BP Pulse Ox O2 Del Method 06/10/24 16:12 123 H 38 H 99 06/10/24 16:09 123 H 32 H 99 06/10/24 16:00 178/120 H 06/10/24 15:51 128 H 37 H 99 06/10/24 15:45 131 H 31 H 99 Room Air 06/10/24 15:36 200/118 H 06/10/24 15:36 133 H 36 H 06/10/24 15:30 133 H 30 H 06/10/24 15:18 196/116 H 06/10/24 15:09 130 H 39 H 99 Room Air 06/10/24 15:00 186/112 H 06/10/24 14:45 125 H 34 H 100 Room Air 06/10/24 14:30 179/119 H 06/10/24 14:28 135 H 06/10/24 14:27 134 H 22 100 Room Air 06/10/24 14:24 180/115 H 06/10/24 14:23 99 Room Air 06/10/24 14:18 36.7 C 132 H 20 193/118 H 99 Room Air Laboratory Results Short CBC 06/10/24 Range/Units 14:15 WBC 37.00 H* (4.8-10.8) K/ul Hgb 17.5 (14.0-18.0) g/dl Hct 51.1 (42.0-52.0) % Plt Count 484 H (130-400) K/uL BMP 06/10/24 06/10/24 14:15 15:35 Sodium 133 L Potassium TNP 6.4 H* Chloride 95 L Carbon Dioxide 8 L* BUN 23 Creatinine 1.78 H Glucose 551 H* Calcium 9.1 Liver Function 06/10/24 06/10/24 Range/Units 14:15 15:35 Total Bilirubin 0.5 (0.2-1.0) mg/dl AST TNP 27 ALT 29 (7-52) U/L Alkaline Phosphatase 106 H (34-104) U/L Albumin 5.3 H (3.4-5.0) gm/dl Diagnostic Findings Chest X-Ray 06/10/24 14:18 XR chest 1V portable CLINICAL HISTORY: Shortness of breath. Diabetic ketoacidosis. COMPARISON STUDY: No previous studies for comparison. FINDINGS: There is no pneumothorax or pleural effusion. There is mild asymmetric left lower lung opacity. Right lung is clear. Cardiomediastinal silhouette is normal. IMPRESSION: Mild asymmetric left lower lung opacity. This may be technical. However, an infectious process could appear similar. Follow-up PA and lateral chest radiographs could be obtained for further evaluation. ACT 112: Negative or not required by law. Electronically signed by: Kyler Hardy M.D. 06/10/2024 3:[address] 06/10/24 17:15 EXAMINATION: Chest CT without CLINICAL HISTORY: Shortness of breath TECHNIQUE: Contiguous axial images were obtained through the chest without the use of intravenous contrast. Sagittal and coronal reformations are supplied. FINDINGS: The chest is well-expanded. No pneumothorax, opacification or pleural effusion. No dominant mass or adenopathy. No pleural or pericardial effusion. Heart size within normal limits. Trachea and mainstem bronchi patent. Possible hepatomegaly not fully within the [id number]. In bone windows, no acute osseous abnormality. No rib or sternal fracture. No chest wall inflammatory change. IMPRESSION: No CT evidence of an acute cardiopulmonary process. Electronically signed by Zarina Daily 06-10-2024 5:49 PM Medications Administered Home Medications Medication Instructions Recorded Confirmed Last Taken insulin aspart U-100 100 unit/mL 1 sliding scale dose continuous 06/10/24 06/10/24 Unknown subcutaneous solution (Novolog subcutaneous infusion USEASDIRECTD U-100 Insulin aspart) Active Medications Generic Name Dose Route Start Last Admin Trade Name Freq PRN Reason Stop Dose Admin Insulin Human Regular 250 250 mls @ 8 mls/hr 06/10/24 14:45 06/10/24 17:58 units/ Sodium Chloride IV 07/10/24 14:44 7.7 units/hr .Q24H WALLY 7.7 mls/hr Titration Protocol 8 UNITS/HR Insulin Aspart 0 units 06/10/24 16:30 06/10/24 17:42 Insulin Aspart Per Unit Charge SC 07/10/24 16:29 Not Given ACHS WALLY
--- NOTE | 2024-06-10 16:58 | Electrocardiogram Report ---
Test Reason : Blood Pressure : */* mmHG Vent. Rate : 132 BPM Atrial Rate : 132 BPM P-R Int : 130 ms QRS Dur : 90 ms QT Int : 302 ms P-R-T Axes : 73 32 17 degrees QTcB Int : 447 ms Sinus tachycardia Abnormal ECG No previous ECGs available Confirmed by Geovanny Hamlin ([id number]) on 06/10/2024 4:57:43 PM Referred By: Confirmed By: Geovanny Hamlin
--- NOTE | 2024-06-10 17:36 | Critical Care Consultation ---
Date of Consultation June 10, 2024 Assessment & Plan (1) DKA (diabetic ketoacidosis): (2) ARON (acute kidney injury): (3) Abnormal chest xray: (4) High anion gap metabolic acidosis: (5) Electrolyte disturbance: Plan Reason Critically Ill: 24 YOM with history of DMI with insulin pump. Patient admitted to ICU for DKA, management of acid base disturbance and electroltyte disturbance. Neuro - No acute needs CAM ICU: NEGATIVE Cardiac - Shock multifactorial, HX HTN - Patient technically meets SIRS in setting of DKA as well. He also has elevated WBC as well as elevated PCT so can't entirely exclude possible infectious cause as well with source possibly pulmonary - Patient will require more crystalloid in setting of DKA - currently received 2.5 Liters- re-evaluate on arrival to ICU - Lactate 4.1 which is downtrending from 5.3- continue to trend - organ dysfunction with ARON- continue supportive care - HX of HTN on Lisinopril - hold with ARON- BP on re-evaluation and without stimulation BP in the 130s. Respiratory - As above, abnormal CXR concern for CAP - Continue Zosyn and Azithromycin at this time- await for CT chest - tachypnea likely result of DKA - CT chest pending for better evaluation of this LLL opacity GI - NO acute needs - abdominal pain resolving following IVF and insulin RENAL/LYTES - ARON, multiple electrolyte disturbances, HAGAP metabolic acidosis - As above likely all result of DKA - He has received 1 amp of HCO3 in EMD for HCO3- 8; PH <7.0- follow VBG q4 hours consider further HCO3 to assist with acidosis however insulin and furhter IVF should assist - BMP q4 hours replete electrolytes as needed - ETOH level pending - Tox screen pending - Follow lactate and renal functions- low suspicion for ingestion at this time however if follow closely as above - No acute needs at this time - Patient has voided x1 following 2.5 liters crystalloid - UA pending ENDO - DMI, with DKA - As above - Continue with insulin drip as above- 0.1 units/kg - goal not to decrease >150mdl per hour - IVF - saline until BG reaches 250 then add dextrose containing fluid HEME - No acute needs - Leukocytosis - see below likely more elevated secondary to hemoconcentration ID - SIRS, - Patient with SIRS, leukocytosis, elevated PCT - ? LLL opacity on CXR - await CT scan of chest - Urine for UA - Blood cultures pending - Continue Zosyn - Hold Azithromycin for now- he received dose in ER which will cover until AM, follow imaging as above and fever curve. LINES/IV ACCESS - Continue use of these lines DVT PROPHYLAXIS - SCDS, ambulation DISPO: ICU while requiring insulin infusion, until GAP is closed and electrolytes/acid base status stable. I have personally spent 45minutes of critical care time in the direct management of this patient. This is a life/limb threatening event. This includes time spent evaluating patient, direct bedside care, chart review, placing orders, interpretation of diagnostic studies, discussion with consultants, patient, and family members, as well as other required patient management activities. This time is exclusive of all separately billable procedures, and teaching time and separate from and in addition to any other critical care service time. Thank you for allowing us to participate in the care of this patient. Please refer to my attending physician's documentation for any further recommendations. History of Present Illness Reason for Consultation: DKA Requesting Physician: Deb Alejandra MD Attending Physician: Deb Alejandra MD History of Present Illness 24 YOM with history of: DMI with insulin pump. Patient reports that he is here for meeting and reports history of some difficulty with his "insulin pump getting through his skin secondary to scar tissue". The patient reports that last night he started to feel nauseated and had diarrhea and noting that his blood sugar levels were going up. He attempted to drink water and changed his pump. Initially he states that he started feeling better and went to bed, this morning he reports that he felt worse, had some more diarrhea and started to feel like he couldn't catch his breath or take a deep enough breath in, so he came to the ER. In the ER the patient had routine labs performed, CXR and ECG. He was noted to have glucose > 500, HCO3 <10, PH <7.0, WBC 30 and elevated PCT. Patient was given 2.5 Liters of crystalloid bolus, initiated on insulin drip at 0.1units/kg. Was given Rocephin and Azithromycin for concerns of LLL pneumonia. Patient reports generally feeling well until last night, voices no other symptoms of feeling ill. He reports being on small dose of Lisinopril for his blood pressure and uses herbal/botanicals to help control his BP. He reports some alcohol intake, but has gone days before without drinking and no effects of withdraw, and denies any other substance use. Patient will come to ICU for continued resuscitation, management of acid base disturbance, electrolyte disturbances, and insulin infusion. CODE: FULL Allergies Allergy/AdvReac Type Severity Reaction Status Date / Time No Known Allergies Allergy Unverified 06/10/24 16:27 Home Medications Medication Instructions Recorded Confirmed Type insulin aspart U-100 100 unit/mL 1 sliding scale dose continuous 06/10/24 06/10/24 History subcutaneous solution (Novolog subcutaneous infusion USEASDIRECTD U-100 Insulin aspart) Patient History Medical History Type 1 diabetes No known health problems Family History Other No known health problems Social History Smoking Status: Never smoker Tobacco Type: Smokeless Tobacco (Dip or Chew) Do You Dip or Chew Tobacco: No (Pt quit about a year ago); Hx Alcohol Use: Yes Alcohol type: beer Hx Substance Use: No Preferred Language: Yemeni Communication Ability: Effective Cranberry Grower Required: No Beliefs That Will Affect Care: None Current Living Situation: Other Current Living Situation Comment: Pt lives with his room mate and his dog Feels Safe at Home: Yes Assistive Devices: None Review of Systems Review of Systems: REVIEW OF SYSTEMS: Constitutional: No fever, sweats or chills Eyes: No diplopia, no worsening or blurred vision ENT: normal hearing, no trouble swallowing Respiratory: (+) dyspnea at rest or on exertion, No cough, sputum, Cardiovascular: (+) tightness, No chest pain, or palpitations Abdomen: pain, diarrhea, No nausea, vomiting, diarrhea or constipation Musculoskeletal: No joint pain, calf pain, swelling Neurologic: No weakness, numbness/tingling, or balance problems Psychiatric: No anxiety or depression Skin: No rash or itch Physical Exam Physical Exam: PHYSICAL EXAM: General: awake, alert, tachypneic Head: Normocephalic, atraumatic ENT: PERRLA, EOMI, no pharyngeal exudate, mucous membranes dry Neuro: AAO x 3, speech clear and appropriate, strength intact bilaterally 5/5, sensation intact and equal all extremities and dermatomes, no pronator drift Chest: Tachypneic, equal rise and fall of the chest, no accessory muscle use, Clear to auscultation, on room air, Cardiac: Regular rate and rhythm, telemetry reviewed- sinus tachycardia, skin warm dry, cap refill <3 seconds, peripheral pulses +2 no JVD, no murmur, no edema GI: NABS x 4 quadrants, soft, nontender to palpation, no rebound, guarding or tenderness : Spontaneously voiding, no pain, no CVA tenderness, Extremities: Normal inspection, no peripheral edema or erythema, calfs nontender to palpation Psych: Normal mood and affect Skin: no rash or erythema Results & Data Results & Data Vital Signs (Past 12 Hours) Vital Signs Temp Pulse Resp BP Pulse Ox O2 Del Method 06/10/24 16:30 169/104 H 06/10/24 16:21 123 H 24 100 Room Air 06/10/24 16:12 123 H 38 H 99 06/10/24 16:09 123 H 32 H 99 06/10/24 16:00 178/120 H 06/10/24 15:51 128 H 37 H 99 06/10/24 15:45 131 H 31 H 99 Room Air 06/10/24 15:36 200/118 H 06/10/24 15:36 133 H 36 H 06/10/24 15:30 133 H 30 H 06/10/24 15:18 196/116 H 06/10/24 15:09 130 H 39 H 99 Room Air 06/10/24 15:00 186/112 H 06/10/24 14:45 125 H 34 H 100 Room Air 06/10/24 14:30 179/119 H 06/10/24 14:28 135 H 06/10/24 14:27 134 H 22 100 Room Air 06/10/24 14:24 180/115 H 06/10/24 14:23 99 Room Air 06/10/24 14:18 36.7 C 132 H 20 193/118 H 99 Room Air Laboratory Results Abnormal lab results 06/10/24 06/10/24 06/10/24 Range/Units 14:15 14:17 14:34 WBC 37.00 H* (4.8-10.8) K/ul POC Hgb 18.4 H (14.0-18.0) g/dl POC Hct 54 H (42-52) % Plt Count 484 H (130-400) K/uL Neut # (Auto) 30.28 H (1.40-6.50) K/uL [place] # (Auto) 3.53 H (0.11-0.59) K/uL Immature Gran # (Auto) 0.68 H (0.01-0.20) K/uL VBG pH < 7.00 L (7.36-7.41) VBG pCO2 37 L (38-50) mmHg POC Sodium 134 L (135-144) mmol/L Sodium 133 L (136-145) mmol/L POC Potassium 6.1 H* (3.3-5.0) mmol/L Potassium (3.5-5.1) mmol/L Chloride 95 L (98-107) mmol/L Carbon Dioxide 8 L* (21-32) mmol/L POC Total CO2 8 L* (24-31) mmol/L Anion Gap 30 H (3-11) POC BUN 28 H (7-18) mg/dl Creatinine 1.78 H (0.6-1.4) mg/dl POC Creatinine 1.4 H (0.6-1.3) mg/dl Glucose 551 H* (70-99(Fasting)) mg/dl POC Glucose 508 H* (70-99) mg/dl POC Glucose (other) 533 H* (70-99) mg/dl Hemoglobin A1c 10.8 H (4.5-5.6) % Lactate (0.4-2.0) mmol/L POC Ioniz Calcium Michael 1.08 L (1.12-1.32) mmol/l Phosphorus 9.3 H (2.5-4.9) mg/dl Magnesium 2.5 H (1.7-2.4) mg/dl Alkaline Phosphatase 106 H (34-104) U/L Total Protein 8.4 H (6.0-8.3) gm/dl Albumin 5.3 H (3.4-5.0) gm/dl Procalcitonin 2.41 H (0-0.5) ng/ml 06/10/24 06/10/24 06/10/24 Range/Units 15:26 15:35 15:37 WBC (4.8-10.8) K/ul POC Hgb (14.0-18.0) g/dl POC Hct (42-52) % Plt Count (130-400) K/uL Neut # (Auto) (1.40-6.50) K/uL [place] # (Auto) (0.11-0.59) K/uL Immature Gran # (Auto) (0.01-0.20) K/uL VBG pH (7.36-7.41) VBG pCO2 (38-50) mmHg POC Sodium (135-144) mmol/L Sodium (136-145) mmol/L POC Potassium (3.3-5.0) mmol/L Potassium 6.4 H* (3.5-5.1) mmol/L Chloride (98-107) mmol/L Carbon Dioxide (21-32) mmol/L POC Total CO2 (24-31) mmol/L Anion Gap (3-11) POC BUN (7-18) mg/dl Creatinine (0.6-1.4) mg/dl POC Creatinine (0.6-1.3) mg/dl Glucose (70-99(Fasting)) mg/dl POC Glucose 493 H* (70-99) mg/dl POC Glucose (other) (70-99) mg/dl Hemoglobin A1c (4.5-5.6) % Lactate 5.3 H* (0.4-2.0) mmol/L POC Ioniz Calcium Michael (1.12-1.32) mmol/l Phosphorus (2.5-4.9) mg/dl Magnesium (1.7-2.4) mg/dl Alkaline Phosphatase (34-104) U/L Total Protein (6.0-8.3) gm/dl Albumin (3.4-5.0) gm/dl Procalcitonin (0-0.5) ng/ml 06/10/24 06/10/24 06/10/24 Range/Units 15:39 16:49 17:18 WBC (4.8-10.8) K/ul POC Hgb (14.0-18.0) g/dl POC Hct 53 H (42-52) % Plt Count (130-400) K/uL Neut # (Auto) (1.40-6.50) K/uL [place] # (Auto) (0.11-0.59) K/uL Immature Gran # (Auto) (0.01-0.20) K/uL VBG pH (7.36-7.41) VBG pCO2 (38-50) mmHg POC Sodium 133 L (135-144) mmol/L Sodium (136-145) mmol/L POC Potassium 6.4 H* (3.3-5.0) mmol/L Potassium (3.5-5.1) mmol/L Chloride (98-107) mmol/L Carbon Dioxide (21-32) mmol/L POC Total CO2 7 L* (24-31) mmol/L Anion Gap (3-11) POC BUN 21 H (7-18) mg/dl Creatinine (0.6-1.4) mg/dl POC Creatinine 1.4 H (0.6-1.3) mg/dl Glucose (70-99(Fasting)) mg/dl POC Glucose 384 H* (70-99) mg/dl POC Glucose (other) 479 H* (70-99) mg/dl Hemoglobin A1c (4.5-5.6) % Lactate 4.1 H* (0.4-2.0) mmol/L POC Ioniz Calcium Michael (1.12-1.32) mmol/l Phosphorus (2.5-4.9) mg/dl Magnesium (1.7-2.4) mg/dl Alkaline Phosphatase (34-104) U/L Total Protein (6.0-8.3) gm/dl Albumin (3.4-5.0) gm/dl Procalcitonin (0-0.5) ng/ml Medications Administered Home Medications insulin aspart U-100 100 unit/mL subcutaneous solution (Novolog U-100 Insulin aspart) 1 sliding scale dose continuous subcutaneous infusion USEASDIRECTD 06/10/24 [History Confirmed 06/10/24] Active Medications Dextrose (Dextrose 50% 50 Ml Syringe) 25 - 50 ml IV UD PRN; Protocol PRN Reason: Hypoglycemia Protocol Stop: 07/10/24 14:43 Glucagon (Glucagon For Inj 1 Mg Vial) 1 mg SQ UD PRN; Protocol PRN Reason: Hypoglycemia Protocol Stop: 07/10/24 14:43 Glucose (Glucose 40% Gel 15 Gm Tube) 15 - 30 gm PO UD PRN; Protocol PRN Reason: Hypoglycemia Protocol Stop: 07/10/24 14:43 Glucose (Glucose 10 Tab/Tube) 4 - 8 tab PO UD PRN; Protocol PRN Reason: Hypoglycemia Protocol Stop: 07/10/24 14:43 Insulin Human Regular 250 (units/ Sodium Chloride) 250 mls @ 8 mls/hr IV .Q24H WALLY; Protocol Stop: 07/10/24 14:44 Last Titration: 06/10/24 16:53 Dose: 9.6 units/hr, 9.6 mls/hr Piperacillin Sod/Tazobactam Sod (Zosyn) 4.5 gm in 100 mls @ 25 mls/hr IV Q8H WALLY; Protocol Stop: 06/13/24 00:00 Sodium Chloride (Nss) 1,000 mls @ 250 mls/hr IV .Q4H WALLY Stop: 06/11/24 17:14 Insulin Aspart (Insulin Aspart Per Unit Charge) 0 units SC ACHS WALLY Stop: 07/10/24 16:29 Last Admin: 06/10/24 17:42 Dose: Not Given Miscellaneous (Carbohydrates For Hypoglycemia ) 15 - 30 gm PO UD PRN PRN Reason: Hypoglycemia Protocol Stop: 07/10/24 14:43 Miscellaneous (Icu Protocol For Hyperglycemia) 1 each N/A [facility] Stop: 06/12/24 20:59 ECG Additional Comments: Sinus tachycardia Abnormal ECG No previous ECGs available Confirmed by Geovanny Hamlin ([id number]) on 06/10/2024 4:57:43 PM Coding Level of Care Code 26841 CRITICAL CARE 1ST 30-74M Diagnoses DKA (diabetic ketoacidosis) E11.10 ARON (acute kidney injury) N17.9 Abnormal chest xray R93.89 High anion gap metabolic acidosis E87.29 Electrolyte disturbance E87.8
[2024-06-10] MEDS: INSULIN ASPART PER UNIT CHARGE SC SCH (17:42)
--- NOTE | 2024-06-10 17:51 | CT Scan Report ---
EXAMINATION: Chest CT without CLINICAL HISTORY: Shortness of breath TECHNIQUE: Contiguous axial images were obtained through the chest without the use of intravenous contrast. Sagittal and coronal reformations are supplied. FINDINGS: The chest is well-expanded. No pneumothorax, opacification or pleural effusion. No dominant mass or adenopathy. No pleural or pericardial effusion. Heart size within normal limits. Trachea and mainstem bronchi patent. Possible hepatomegaly not fully within the [id number]. In bone windows, no acute osseous abnormality. No rib or sternal fracture. No chest wall inflammatory change. IMPRESSION: No CT evidence of an acute cardiopulmonary process. Electronically signed by Zarina Daily 06-10-2024 5:49 PM
[2024-06-10] MEDS: PIPERACILLIN/TAZOBACTAM 4.5 GM/100 ML BAG IV STA (18:00)
[2024-06-10] MEDS ORDERED: ONDANSETRON INJ 2 MG/ML 2 ML VIAL IV PRN (18:27)
[2024-06-10] MEDS ORDERED: STAT IV Infusion **Titration per Protocol STA (18:27)
[2024-06-10] MEDS ORDERED: DKA GOAL RANGE 150-250 mg/dl ONE (18:27)
[2024-06-10] MEDS ORDERED: PHARMACY GLYCEMIC MGMT CONSULT PRN (18:27)
[2024-06-10] MEDS ORDERED: INSULIN REGULAR 250 UNITS in SODIUM CHLORIDE 0.9% 247.5 ML IV SCH (18:27)
[2024-06-10] MEDS ORDERED: ACETAMINOPHEN 325 MG TAB PO PRN (18:27)
[2024-06-10 19:36] LABS: BUN Creatinine Ratio 14.5 (10-20); Calcium 7.7 mg/dl (8.6-10.3); Creatinine Clr Calc Pharmacy 84.5 ml/min; Potassium 4.8 mmol/L (3.5-5.1)
[2024-06-10 19:40] LABS: Estimated Average Glucose 266 mg/dl; Hemoglobin A1C 10.9 % (4.5-5.6)
[2024-06-10] MEDS ORDERED: PENDING D5 1/2NS+40mEq KCL IVF SCH (20:00)
[2024-06-10] MEDS: ENOXAPARIN INJ 40 MG/0.4 ML SYR SQ SCH (20:01)
[2024-06-10] MEDS ORDERED: INSULIN ASPART PER UNIT CHARGE SC SCH (21:00)
[2024-06-10] MEDS ORDERED: ICU Protocol for HYPERglycemia SCH (21:00)
[2024-06-10] MEDS: D5W 1/2NSS + KCL 40 mEq IV SCH (21:20)
[2024-06-10] MEDS: SODIUM CHLORIDE 0.9% 500 ML IV ONE (21:20)
[2024-06-10] MEDS: PIPERACILLIN/TAZOBACTAM 4.5 GM/100 ML BAG IV SCH (23:21)
[2024-06-10 23:30] LABS: BUN Creatinine Ratio 14.2 (10-20); Calcium 7.5 mg/dl (8.6-10.3); Creatinine Clr Calc Pharmacy 100.2 ml/min; Phosphorus 1.8 mg/dl (2.5-4.9); Potassium 4.1 mmol/L (3.5-5.1)
[2024-06-10 23:37] LABS: Appearance Urine Clear (Clear); Bacteria Urine Automated None Seen (None Seen); Bilirubin Urine Negative (Negative); Blood Urine 2+ (Negative); Color Urine Yellow; Epithelial Cell Urine Auto 0-2 /hpf (0-2); Glucose Urine UA 3+ (Negative); Ketones Urine 4+ (Negative); Leukocyte Esterase Urine Negative (Negative); Nitrite Urine Negative (Negative); Protein Urine 2+ (Negative); RBC Urine Automated 0-2 /hpf (0-2); Urobilinogen Urine Negative (Negative); WBC Urine Automated 0-5 /hpf (0-5)
[2024-06-10 23:40] LABS: Amphetamines+Metham, Urine Neg (Neg); Barbiturates, Urine Neg (Neg); Benzodiazepine, Urine Neg (Neg); Cocaine, Urine Neg (Neg); Fentanyl, Urine Pos (Neg); MDMA (Ecstacy), Urine Neg (Neg); Marijuana, Urine Pos (Neg); Methadone, Urine Neg (Neg); Opiate, Urine Neg (Neg); Phencyclidine, Urine Neg (Neg)
[2024-06-10] MEDS: POTASSIUM CHLORIDE CRTAB 20 MEQ TABCR PO STA (23:57)
[2024-06-11 03:35] LABS: BUN Creatinine Ratio 14.7 (10-20); Calcium 7.8 mg/dl (8.6-10.3); Creatinine Clr Calc Pharmacy 103.7 ml/min; Phosphorus 2.4 mg/dl (2.5-4.9); Potassium 4.2 mmol/L (3.5-5.1)
[2024-06-11] MEDS: POTASSIUM CHLORIDE CRTAB 20 MEQ TABCR PO STA (04:18)
--- NOTE | 2024-06-11 06:35 | Critical Care Progress Note ---
Date of Service June 11, 2024 Assessment & Plan (1) DKA (diabetic ketoacidosis): (2) ARON (acute kidney injury): (3) Abnormal chest xray: (4) High anion gap metabolic acidosis: (5) Electrolyte disturbance: Plan Reason Critically Ill: 24 YOM with history of DMI with insulin pump. Patient admitted to ICU for DKA, management of acid base disturbance and electrolyte disturbance. Neuro - No acute needs CAM ICU: negative Cardiac - no acute needs at this time, hx HTN on lisinopril but doesn't take as prescribed - Lactate resolved: 4.1 -> 1.3 - ARON resolved following IVF Respiratory - no acute needs, tachypnea has resolved - CT chest negative fo acute process GI - No acute needs - abdominal pain and nausea resolving following IVF and insulin - successfully had breakfast this AM RENAL/LYTES - ARON, multiple electrolyte disturbances, HAGMA have generally reso lved - phosphate low: 1.4 down from 2.1 -> replete with potassium phosphate tabs BID, recheck in AM - ETOH level negative - Tox screen positive for cannabis (recreational) and fentanyl (given in ambul ance) - lactate and creatinine resolved - No acute needs at this time - UA: 06/10/24, 4+ ketones, 3+ glucose, no bacteria ENDO - DM1 with DKA, anion gap resolved - Continue insulin drip, ensure pump is fixed and ready for transition from drip - IVF: D5 half NS currently d/c as he is tolerating PO and labs have generally improved HEME - No acute needs - Leukocytosis downtrending, was likely elevated secondary to hemoconcentration via dehydration ID - SIRS, resolved - procal elevated day prior, leukocytosis downtrending today 06/11/24 - questionable LLL opacity on CXR -> CT scan of chest negative for acute process - UA: 06/10/24, 4+ ketones, 3+ glucose, no bacteria - Blood cultures: one bottle positive for Staph epidermidis -> repeating urgent bcx to clarify false vs true positive - d/c Zosyn for now LINES/IV ACCESS - L antecubital DVT PROPHYLAXIS - ambulation DISPO: ICU while requiring insulin infusion, anion gap has closed so soon able to downgrade Admission and Anticipated Discharge Date Admission Date: June 10, 2024 Supervising Physician Co-Signing Physician Notes Dr. Rogers was resident physician during care of patient. I separately evaluated patient for beasley portions of the history and the exam. I was present during the critical portion of medical decision making, and I discussed the case with the resident. I generally agree with the findings and plan. Nausea vomiting resolved, progress diet, transition off insulin drip gap closed, stable for downgrade out of ICU. Subjective Dov was seen and evaluated at bedside this AM. States he feels much better this morning compared to day prior. Endorses mild nausea and abdominal soreness overnight, but otherwise feels fine. States he started having symptoms of diarrhea and vomiting the evening of 06/09/24, progressed to some chest discomfort and abdominal pain the morning of 06/10/24. Has been receiving insulin drip, normal saline, potassium, and Zosyn overnight. Additionally notes he only uses needles for insulin, doesn't share needles with anyone, and has never used IV drugs. Understands that we must repeat blood cultures as there was one positive for growth, although likely a contaminant. Physical Exam Physical Exam: Constitutional: A&Ox3, in no acute distress Head: NC/AT ENT: EOM intact, anicteric sclerae, PERRL b/l, mucous membranes with improving moisture status Neuro: speech intact, no facial droop, sensation grossly intact Respiratory: clear to auscultation b/l, no wheeze/rales/rhonchi Cardiovascular: RRR, no murmurs/rubs/gallops - 2+ carotid pulses b/l, 2+ radial b/l, 2+ post tib b/l, normal cap refill GI: +BS, abdomen soft, nontender to palpation, no guarding MSK: 5/5 strength in all extremities, no edema observed, no cyanosis/clubbing Psych: good eye contact, mood-affect congruence Skin: no rash or sores observed, warm Results & Data Results & Data Vital Signs (Past 12 Hours) Vital Signs Temp Pulse Resp BP BP Pulse Ox Pulse Ox 06/11/24 06:00 94 H 21 143/92 H 96 06/11/24 05:00 92 H 20 148/90 H 97 06/11/24 04:00 37.1 C 90 19 148/87 H 97 06/11/24 03:00 96 H 20 142/89 H 97 06/11/24 02:00 90 17 150/91 H 99 06/11/24 01:00 100 H 20 149/84 H 97 06/11/24 00:00 37.2 C 106 H 20 154/84 H 96 06/10/24 23:00 108 H 22 146/83 H 96 06/10/24 22:30 119 H 16 96 06/10/24 22:00 117 H 23 159/78 H 96 06/10/24 21:00 115 H 22 157/81 H 96 06/10/24 20:30 114 H 23 97 06/10/24 20:00 111 H 22 162/115 H 98 06/10/24 20:00 97 06/10/24 20:00 97 06/10/24 19:40 36.9 C 25 H 178/88 H 97 06/10/24 19:03 113 H 27 H 98 06/10/24 19:00 134/81 06/10/24 18:57 110 H 22 98 06/10/24 18:51 113 H 27 H 98 06/10/24 18:51 114 H 06/10/24 18:42 115 H 23 98 O2 Del Method O2 Del Method 06/11/24 06:00 Room Air 06/11/24 05:00 Room Air 06/11/24 04:00 Room Air 06/11/24 03:00 Room Air 06/11/24 02:00 Room Air 06/11/24 01:00 Room Air 06/11/24 00:00 Room Air 06/10/24 23:00 Room Air 06/10/24 22:30 Room Air 06/10/24 22:00 Room Air 06/10/24 21:00 Room Air 06/10/24 20:30 Room Air 06/10/24 20:00 Room Air 06/10/24 20:00 Room Air 06/10/24 20:00 Room Air 06/10/24 19:40 Room Air 06/10/24 19:03 Room Air 06/10/24 19:00 06/10/24 18:57 Room Air 06/10/24 18:51 Room Air 06/10/24 18:51 06/10/24 18:42 Room Air Resident Activity Tracking Resident Involvement: Resident Care Provided Care Provided: Adult Hospital Medicine
[2024-06-11 07:03] LABS: Basophils # (auto) 0.05 K/uL (0.00-0.20); Basophils % (auto) 0.2 %; Eosinophils # (auto) 0.02 K/uL (0.00-0.50); Eosinophils % (auto) 0.1 %; Hematocrit (blood only) 41.3 % (42.0-52.0); Hemoglobin 15.1 g/dl (14.0-18.0); Immature Granulocytes # (auto) 0.21 K/uL (0.01-0.20); Immature Granulocytes % (auto) 0.9 %; Lymphocytes # (auto) 1.58 K/uL (1.20-3.40); Lymphocytes % (auto) 6.7 %; Mean Corpuscular Hgb Conc 36.6 g/dL (32.0-36.0); Mean Corpuscular Volume 90.4 fL (80.0-100.0); Mean Platelet Volume 10.3 fL (9.4-12.4); Monocytes # (auto) 2.67 K/uL (0.11-0.59); Monocytes % (auto) 11.3 %; Neutrophils # (auto) 19.03 K/uL (1.40-6.50); Neutrophils % (auto) 80.8 %; Platelet Count 285 K/uL (130-400); RDW Coefficient of Variation 12.1 % (11.5-14.5); RDW Standard Deviation 39.6 fL (36.4-46.3); Red Blood Count 4.57 M/uL (4.70-6.10); White Blood Count 23.56 K/ul (4.8-10.8)
[2024-06-11 07:13] LABS: BUN Creatinine Ratio 13.7 (10-20); Calcium 8.3 mg/dl (8.6-10.3); Creatinine Clr Calc Pharmacy 102.8 ml/min; Phosphorus 2.1 mg/dl (2.5-4.9); Potassium 4.3 mmol/L (3.5-5.1)
[2024-06-11 08:29] LABS: A calco-baum cmplx NotReported Not Detected (NotDetected); Bact fragilis Not Reported Not Detected (NotDetected); Blood Culture Id Panel See PCR Comment (NotDetected); C auris Not Reported Not Detected (NotDetected); Calbicans Not Reported Not Detected (NotDetected); Candida glabrata Not Reported Not Detected (NotDetected); Candida krusei Not Reported Not Detected (NotDetected); Cneoformans/gatti Not Reported Not Detected (NotDetected); Cparapsilosis Not Reported Not Detected (NotDetected); E cloacae compx Not Reported Not Detected (NotDetected); Efaecalis Not Reported Not Detected (NotDetected); Efaecium Not Reported Not Detected (NotDetected); Enterobacterales Not Reported Not Detected (NotDetected); Escherichia coli Not Reported Not Detected (NotDetected); H influenzae Not Reported Not Detected (NotDetected); K aerogenes Not Reported Not Detected (NotDetected); Koxytoca Not Reported Not Detected (NotDetected); Kpneumoniae grp Not Reported Not Detected (NotDetected); Lmonocyt Not Reported Not Detected (NotDetected); N meningitidis Not Reported Not Detected (NotDetected); P aeruginosa Not Reported Not Detected (NotDetected); Proteus spp Not Reported Not Detected (NotDetected); Salmonella spp Not Reported Not Detected (NotDetected); Staph lugdunensis Not Reported Not Detected (NotDetected); Staph spp. Not Reported DETECTED (NotDetected); Staphaureus Not Reported Not Detected (NotDetected); Staphepi Not Reported DETECTED (NotDetected); Stenmaltophilia Not Reported Not Detected (NotDetected); Strep agal(GrpB) Not Reported Not Detected (NotDetected); Strep pneum Not Reported Not Detected (NotDetected); Strep pyog (GrpA) Not Reported Not Detected (NotDetected); Strep spp Not Reported Not Detected (NotDetected)
[2024-06-11 08:46] LABS: Staphylococcus spp. DETECTED (NotDetected); mecAC Resistant Gene DETECTED (NotDetected)
[2024-06-11 08:47] LABS: Staphylococcus epidermidis DETECTED (NotDetected)
--- NOTE | 2024-06-11 09:53 | Billing Data ---
Date of Service June 11, 2024 Coding Level of Care Code 70460 SUB INP/OBS CARE MIN
--- NOTE | 2024-06-11 10:08 | Billing Data ---
Date of Service June 11, 2024 Coding Level of Care Code 37569 SUB INP/OBS CARE
[2024-06-11] MEDS: LANTUS PER UNIT CHARGE SC ONE (10:46)
[2024-06-11] MEDS: INSULIN ASPART PER UNIT CHARGE SC SCH ×2 (10:47→14:49)
[2024-06-11 11:00] LABS: BUN Creatinine Ratio 13.5 (10-20); Calcium 8.8 mg/dl (8.6-10.3); Creatinine Clr Calc Pharmacy 115.6 ml/min
[2024-06-11 11:03] LABS: Phosphorus 1.4 mg/dl (2.5-4.9)
--- NOTE | 2024-06-11 12:05 | Pharmacy Report ---
Pharmacy Glycemic Short Note 2 - Date of Service June 11, 2024 - Glycemic Short BSG Results (Last 24 hours): 06/10/24 06/10/24 06/10/24 14:15 14:34 15:26 Glucose 551 H* POC Glucose 508 H* 493 H* POC Glucose (other) 533 H* 06/10/24 06/10/24 06/10/24 15:39 16:49 17:55 Glucose POC Glucose 384 H* 292 H POC Glucose (other) 479 H* 06/10/24 06/10/24 06/10/24 18:58 19:03 19:46 Glucose 292 H POC Glucose 262 H 250 H POC Glucose (other) 06/10/24 06/10/24 06/10/24 21:01 22:04 22:45 Glucose 212 H POC Glucose 197 H 206 H POC Glucose (other) 06/10/24 06/10/24 06/11/24 22:46 23:59 01:07 Glucose POC Glucose 205 H 212 H 236 H POC Glucose (other) 06/11/24 06/11/24 06/11/24 02:04 02:47 02:48 Glucose 204 H POC Glucose 193 H 181 H POC Glucose (other) 06/11/24 06/11/24 06/11/24 04:16 05:10 06:35 Glucose 178 H POC Glucose 204 H 189 H POC Glucose (other) 06/11/24 06/11/24 06/11/24 06:51 09:03 10:32 Glucose 157 H POC Glucose 163 H 155 H POC Glucose (other) 06/11/24 06/11/24 06/11/24 10:34 11:01 11:32 Glucose POC Glucose 139 H 143 H 137 H POC Glucose (other) OUTPATIENT ANTIDIABETIC REGIMEN: * Novolog insulin pump * Basal: ~40.35 unit/day * CF: 40mg/dl/unit * CR: 00-05: 7gm/unit, 05-10: 8gm/unit, 10-00: 5gm/unit HbA1C: 10.9% ASSESSMENT: * Pt is a 24 year old male admitted in DKA. History of DM1 on insulin pump therapy at home (pump settings validated @ bedside). Pharmacy consulted to assist with inpatient glycemic management. * Initial labs: BSG-508, AG-30, bicarb-8, pH <7. Initiated on an insulin drip per DKA protocol yesterday ~ 1600. Infusion ran overnight through this AM. Dextrose containing IVF ordered per provider. * This morning gap closed and patient mentating appropriately- discussed on rounds and will transition to SQ. * Lantus 35 units SQ X 1 dose (~85% of home basal), overlapped with drip ~ 1hr. IV fluids discontinued, diet ordered. Novolog ACHS 40/6 with overnight checks tonight. PLAN FOR INPATIENT GLYCEMIC CONTROL: * Hold outpatient oral diabetes medications * Basal insulin * Lantus 35 units SQ X 1 * Bolus insulin * NovoLog per scale ACHS or Q6hrs while NPO * Goal Range: Low 110 mg/dL - High 140 mg/dL * Correction Factor: 40 mg/dL/unit * Nutritional / Prandial insulin per carb ratio of 1 unit per 6 grams CHO consumed
--- NOTE | 2024-06-11 12:18 | Hospitalist Progress Note ---
Date of Service June 11, 2024 Assessment & Plan (1) DKA (diabetic ketoacidosis): (2) High anion gap metabolic acidosis: (3) ARON (acute kidney injury): Plan Mr. 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, 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 Continue to monitor Improving Possible Sepsis Pt presented with significant leukocytosis, tachycardia, tachypnea Can certainly be explained by DKA noted above However chest XRAY concerning for possible pneumonia CT chest unremarkable Blood Cx 1/4 bottles growing gram positive cocci in clusters, with biofire noting presence of mecA gene, staph aureus and staph epidermidis MRSA nares negative UA unremarkable Respiratory viral panel negative U tox positive for fentanyl and marijuana Repeat Blood Cx x 2 sets pending Was on empiric Zosyn, switched to empiric Vancomycin in the setting of above Continue to monitor Improving ARON cr 1.78 on admission, likely in setting of DKA IV fluids as noted above Held nephrotoxic meds- pt's home lisnopril Noted improvement Restarted on lisinopril 10mg daily HTN Reportedly on lisinopril Restarted on lisinopril 10mg daily Diet: DM diet DVT ppx: lovenox SQ Full code Dispo: Home once medically stable Admission and Anticipated Discharge Date Admission Date: June 10, 2024 Subjective pt was seen in the AM while still down in the ICU Stated that he was feeling much better Notes he still feels weak however Review of Systems Review of Systems: All systems reviewed & are unremarkable except as noted in Subjective Physical Exam Physical Exam: General: Alert, oriented. No acute distress Skin: No noted rashes or bruises Psych: Appropriate mood and affect Neuro: No gross deficits HEENT: NC/AT CV: RRR Resp: Breath sounds clear bilaterally, no increased effort of breathing Abdomen: Soft, nontender Extremities: No edema in lower extremities bilaterally. Results & Data Results & Data Vital Signs (Past 12 Hours) Vital Signs Temp Pulse Resp BP Pulse Ox O2 Del Method 06/11/24 11:42 37.1 C 06/11/24 11:00 146/88 H 06/11/24 10:51 80 18 99 06/11/24 10:00 83 17 99 06/11/24 10:00 143/88 H 06/11/24 09:00 93 H 20 97 06/11/24 09:00 135/90 06/11/24 08:42 90 06/11/24 08:05 36.9 C 06/11/24 08:00 141/90 H 06/11/24 08:00 94 H 21 97 06/11/24 07:00 140/93 06/11/24 06:00 94 H 21 143/92 H 96 Room Air 06/11/24 05:00 92 H 20 148/90 H 97 Room Air 06/11/24 04:00 37.1 C 90 19 148/87 H 97 Room Air 06/11/24 03:00 96 H 20 142/89 H 97 Room Air 06/11/24 02:00 90 17 150/91 H 99 Room Air 06/11/24 01:00 100 H 20 149/84 H 97 Room Air Diagnostic Findings Chest X-Ray 06/10/24 14:18 XR chest 1V portable CLINICAL HISTORY: Shortness of breath. Diabetic ketoacidosis. COMPARISON STUDY: No previous studies for comparison. FINDINGS: There is no pneumothorax or pleural effusion. There is mild asymmetric left lower lung opacity. Right lung is clear. Cardiomediastinal silhouette is normal. IMPRESSION: Mild asymmetric left lower lung opacity. This may be technical. However, an infectious process could appear similar. Follow-up PA and lateral chest radiographs could be obtained for further evaluation. ACT 112: Negative or not required by law. Electronically signed by: Kyler Hardy M.D. 06/10/2024 3:[address] 06/10/24 17:15 EXAMINATION: Chest CT without CLINICAL HISTORY: Shortness of breath TECHNIQUE: Contiguous axial images were obtained through the chest without the use of intravenous contrast. Sagittal and coronal reformations are supplied. FINDINGS: The chest is well-expanded. No pneumothorax, opacification or pleural effusion. No dominant mass or adenopathy. No pleural or pericardial effusion. Heart size within normal limits. Trachea and mainstem bronchi patent. Possible hepatomegaly not fully within the [id number]. In bone windows, no acute osseous abnormality. No rib or sternal fracture. No chest wall inflammatory change. IMPRESSION: No CT evidence of an acute cardiopulmonary process. Electronically signed by Zarina Daily 06-10-2024 5:49 PM
[2024-06-11] MEDS: POT PHOSPHATE MONOBASIC W/ SOD TAB PO SCH ×2 (12:55→20:24)
[2024-06-11 15:41] LABS: BUN Creatinine Ratio 14.5 (10-20); Calcium 8.7 mg/dl (8.6-10.3); Creatinine Clr Calc Pharmacy 144.9 ml/min; Potassium 3.9 mmol/L (3.5-5.1)
[2024-06-11] MEDS ORDERED: VANCOMYCIN CONSULT ACTIVE PRN (17:31)
[2024-06-11] MEDS ORDERED: POTASSIUM PHOS 3 MMOL/1 ML INFUSION IV STA (17:57)
[2024-06-11] MEDS: VANCOMYCIN HCL 2,000 MG in SODIUM CHLORIDE 0.9% 500 ML IV ONE (18:05)
[2024-06-12] MEDS: INSULIN ASPART PER UNIT CHARGE SC SCH (00:30)
[2024-06-12] MEDS: VANCOMYCIN HCL 1,250 MG in SODIUM CHLORIDE 0.9% 250 ML IV SCH (02:26)
[2024-06-12 06:34] LABS: Albumin Globulin Ratio 1.5 (0.9-2); Albumin Level 3.7 gm/dl (3.4-5.0); BUN Creatinine Ratio 13.5 (10-20); Bilirubin,Total 1.5 mg/dl (0.2-1.0); Calcium 8.7 mg/dl (8.6-10.3); Creatinine Clr Calc Pharmacy 162.5 ml/min; Globulin 2.4 gm/dl (2.5-4.0); Magnesium 1.9 mg/dl (1.7-2.4); Phosphorus 1.9 mg/dl (2.5-4.9); Potassium 3.7 mmol/L (3.5-5.1); Total Protein 6.1 gm/dl (6.0-8.3)
[2024-06-12 06:42] LABS: Basophils # (auto) 0.06 K/uL (0.00-0.20); Basophils % (auto) 0.5 %; Eosinophils # (auto) 0.08 K/uL (0.00-0.50); Eosinophils % (auto) 0.7 %; Hematocrit (blood only) 39.8 % (42.0-52.0); Hemoglobin 14.5 g/dl (14.0-18.0); Immature Granulocytes # (auto) 0.06 K/uL (0.01-0.20); Immature Granulocytes % (auto) 0.5 %; Lymphocytes # (auto) 1.56 K/uL (1.20-3.40); Lymphocytes % (auto) 12.9 %; Mean Corpuscular Hemoglobin 32.4 pg (25.0-34.0); Mean Corpuscular Hgb Conc 36.4 g/dL (32.0-36.0); Mean Platelet Volume 10.2 fL (9.4-12.4); Monocytes # (auto) 0.96 K/uL (0.11-0.59); Neutrophils # (auto) 9.35 K/uL (1.40-6.50); Neutrophils % (auto) 77.4 %; Platelet Count 241 K/uL (130-400); RDW Coefficient of Variation 12.4 % (11.5-14.5); RDW Standard Deviation 40.4 fL (36.4-46.3); Red Blood Count 4.47 M/uL (4.70-6.10); White Blood Count 12.07 K/ul (4.8-10.8)
[2024-06-12] MEDS: lisinopril 10 MG TAB PO SCH (07:48)
[2024-06-12] MEDS: LANTUS PER UNIT CHARGE SC SCH (08:31)
[2024-06-12] MEDS ORDERED: POTASSIUM PHOS 3 MMOL/1 ML INFUSION IV STA (09:25)
[2024-06-12] MEDS: POTASSIUM PHOSPHATE 21 MMOL in SODIUM CHLORIDE 0.9% 500 ML IV ONE (10:12)
--- NOTE | 2024-06-12 10:15 | Pharmacy Report ---
Pharmacy Glycemic Short Note 2 - Date of Service June 12, 2024 - Glycemic Short BSG Results (Last 24 hours): 06/11/24 06/11/24 06/11/24 10:32 10:34 11:01 Glucose 157 H POC Glucose 139 H 143 H 06/11/24 06/11/24 06/11/24 11:32 14:04 15:04 Glucose 168 H POC Glucose 137 H 147 H 06/11/24 06/11/24 06/12/24 16:19 20:02 00:23 Glucose POC Glucose 172 H 201 H 187 H 06/12/24 06/12/24 06/12/24 03:44 05:39 08:11 Glucose 235 H POC Glucose 197 H 279 H OUTPATIENT ANTIDIABETIC REGIMEN: * Novolog insulin pump * Basal: ~40.35 unit/day * CF: 40mg/dl/unit * CR: 00-05: 7gm/unit, 05-10: 8gm/unit, 10-00: 5gm/unit HbA1C: 10.9% on 06/10/24 ASSESSMENT: 06/12 * Patient received a total of ~ 100 units of insulin yesterday (35 units of Lantus, 9 units of SQ bolus, and ~55-60 units of iv insulin from the drip) * AG was 9, CO2 was 22, and fasting BSG was 279mg/dL this morning. Lantus 40 units SQ daily was started. (equivalent to daily basal insulin from his home pump) * Will continue bolus insulin parameters for now as this is similar to his home pump settings. 06/11 * Pt is a 24 year old male admitted in DKA. History of DM1 on insulin pump therapy at home (pump settings validated @ bedside). Pharmacy consulted to assist with inpatient glycemic management. * Initial labs: BSG-508, AG-30, bicarb-8, pH <7. Initiated on an insulin drip per DKA protocol yesterday ~ 1600. Infusion ran overnight through this AM. Dextrose containing IVF ordered per provider. * This morning gap closed and patient mentating appropriately- discussed on rounds and will transition to SQ. * Lantus 35 units SQ X 1 dose (~85% of home basal), overlapped with drip ~ 1hr. IV fluids discontinued, diet ordered. Novolog ACHS 40/6 with overnight checks tonight. PLAN FOR INPATIENT GLYCEMIC CONTROL: * Hold outpatient diabetes medications * Basal insulin * Lantus 40 units SQ daily * Bolus insulin * NovoLog per scale ACHS or Q6hrs while NPO * Goal Range: Low 110 mg/dL - High 140 mg/dL * Correction Factor: 40 mg/dL/unit * Nutritional / Prandial insulin per carb ratio of 1 unit per 6 grams CHO consumed
--- NOTE | 2024-06-12 10:56 | Ultrasound Report ---
ABDOMINAL ULTRASOUND, RIGHT UPPER QUADRANT HISTORY: Elevated LFTs elevated liver enzymes. COMPARISON: Chest CT 06/10/2024 FINDINGS: Pancreas: The pancreas demonstrates a normal echotexture. Liver: Increased echogenicity measuring up to 17 cm. No mass or marginal nodularity. Gallbladder: No gallbladder wall thickening. No gallstones. CBD: 4 mm Right kidney: No hydronephrosis. IMPRESSION: 1. Unremarkable gallbladder. 2. No biliary ductal dilation. 3. Hepatic steatosis. ACT 112: Negative or not required by law. Electronically signed by: Maciel Ye M.D. 06/12/2024 10:54 AM
[2024-06-12 11:02] LABS: A calco-baum cmplx NotReported Not Detected (NotDetected); Bact fragilis Not Reported Not Detected (NotDetected); Blood Culture Id Panel PCR Panel Negative (NotDetected); C auris Not Reported Not Detected (NotDetected); Calbicans Not Reported Not Detected (NotDetected); Candida glabrata Not Reported Not Detected (NotDetected); Candida krusei Not Reported Not Detected (NotDetected); Cneoformans/gatti Not Reported Not Detected (NotDetected); Cparapsilosis Not Reported Not Detected (NotDetected); E cloacae compx Not Reported Not Detected (NotDetected); Efaecalis Not Reported Not Detected (NotDetected); Efaecium Not Reported Not Detected (NotDetected); Enterobacterales Not Reported Not Detected (NotDetected); Escherichia coli Not Reported Not Detected (NotDetected); H influenzae Not Reported Not Detected (NotDetected); K aerogenes Not Reported Not Detected (NotDetected); Koxytoca Not Reported Not Detected (NotDetected); Kpneumoniae grp Not Reported Not Detected (NotDetected); Lmonocyt Not Reported Not Detected (NotDetected); N meningitidis Not Reported Not Detected (NotDetected); P aeruginosa Not Reported Not Detected (NotDetected); Proteus spp Not Reported Not Detected (NotDetected); Salmonella spp Not Reported Not Detected (NotDetected); Staph lugdunensis Not Reported Not Detected (NotDetected); Staph spp. Not Reported Not Detected (NotDetected); Staphaureus Not Reported Not Detected (NotDetected); Staphepi Not Reported Not Detected (NotDetected); Stenmaltophilia Not Reported Not Detected (NotDetected); Strep agal(GrpB) Not Reported Not Detected (NotDetected); Strep pneum Not Reported Not Detected (NotDetected); Strep pyog (GrpA) Not Reported Not Detected (NotDetected); Strep spp Not Reported Not Detected (NotDetected)
--- NOTE | 2024-06-12 12:26 | Pharmacy Report ---
Pharmacy PK ABX Note - Date of Service June 12, 2024 - Assessment and Plan Assessment 24 year old M admitted on 06/10 for DKA and ARON. Vancomycin was started 06/11 for treatment of possible sepsis/pneumonia as patient presented with significant leukocytosis, tachycardia, and tachypnea, and chest XRAY concerning for possible pneumonia. * Pertinent microbiologic data includes: Blood cultures from 06/10-- 1 of 2 growing S. epidermidis and 1of 2 growing gram negative bacilli. Repeat blood cultures from 06/11 are no growth to date. MRSA nasal swab is (-). Day # 2 of antimicrobial therapy. Plan Vancomycin * Loading dose: 2000 mg IV x 1 * Maintenance dose: 1250 mg IV every 8 hours * Regimen is predicted to achieve target AUC/VANI of 400-600 mg/L.hr * Random level ordered for: 06/13/24 at 0900 Pharmacy will continue to follow and will adjust dose/frequency as necessary. Thank you. Pharmacy has transitioned to AUC monitoring for vancomycin. AUC/VANI is the preferred PK/PD target and is associated with decreased risk of nephrotoxicity compared to traditional trough targets.
--- NOTE | 2024-06-12 13:58 | Hospitalist Progress Note ---
Date of Service June 12, 2024 Assessment & Plan (1) DKA (diabetic ketoacidosis): (2) High anion gap metabolic acidosis: (3) ARON (acute kidney injury): Plan Mr. 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, 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 Continue to monitor Improving Possible Sepsis Pt presented with significant leukocytosis, tachycardia, tachypnea Can certainly be explained by DKA noted above However chest XRAY concerning for possible pneumonia CT chest unremarkable Blood Cx 1/4 bottles growing staph epidermidis and 1/4 growing gram negative bacilli, with biofire noting presence of mecA gene, staph aureus and staph epidermidis MRSA nares negative UA unremarkable Respiratory viral panel negative U tox positive for fentanyl and marijuana (he states he was given fentanyl in the ambulance, and smokes marijuana recreationally) Repeat Blood Cx x 2 sets NGTD x 24 hours Was on empiric Zosyn, switched to empiric Vancomycin in the setting of above Continue to monitor Improving Hypophosphatemia Replete as needed Elevated liver enzymes T bili transiently elevated at 1.5 Liver US unremarkable except for noted steatosis Continue to monitor liver enzymes ARON cr 1.78 on admission, likely in setting of DKA IV fluids as noted above Held nephrotoxic meds- pt's home lisnopril Noted improvement Restarted on lisinopril 10mg daily HTN Reportedly on lisinopril Restarted on lisinopril 10mg daily Diet: DM diet DVT ppx: lovenox SQ Full code Dispo: Home once repeat blood cx negative at 48hrs Admission and Anticipated Discharge Date Admission Date: June 10, 2024 Subjective Pt was seen in the PM States that he is feeling much better States he was in the area for a conference Anxious for discharge Review of Systems Review of Systems: All systems reviewed & are unremarkable except as noted in Subjective Physical Exam Physical Exam: General: Alert, oriented. No acute distress Skin: No noted rashes or bruises Psych: Appropriate mood and affect Neuro: No gross deficits HEENT: NC/AT CV: RRR Resp: Breath sounds clear bilaterally, no increased effort of breathing Abdomen: Soft, nontender Extremities: No edema in lower extremities bilaterally. Results & Data Results & Data Vital Signs (Past 12 Hours) Vital Signs Temp Pulse Pulse Resp BP Pulse Ox O2 Del Method 06/12/24 12:34 36.5 C 90 16 138/87 97 Room Air 06/12/24 07:58 36.9 C 95 H 16 137/82 97 Room Air 06/12/24 07:36 87 06/12/24 03:13 36.8 C 95 H 18 144/87 H 96 Room Air
[2024-06-13 04:16] LABS: Basophils # (auto) 0.05 K/uL (0.00-0.20); Basophils % (auto) 0.8 %; Eosinophils # (auto) 0.12 K/uL (0.00-0.50); Eosinophils % (auto) 1.9 %; Hematocrit (blood only) 39.9 % (42.0-52.0); Hemoglobin 14.4 g/dl (14.0-18.0); Immature Granulocytes # (auto) 0.02 K/uL (0.01-0.20); Immature Granulocytes % (auto) 0.3 %; Lymphocytes % (auto) 29.2 %; Mean Corpuscular Hemoglobin 32.4 pg (25.0-34.0); Mean Corpuscular Hgb Conc 36.1 g/dL (32.0-36.0); Mean Corpuscular Volume 89.7 fL (80.0-100.0); Mean Platelet Volume 10.2 fL (9.4-12.4); Monocytes # (auto) 0.59 K/uL (0.11-0.59); Monocytes % (auto) 9.6 %; Neutrophils # (auto) 3.58 K/uL (1.40-6.50); Neutrophils % (auto) 58.2 %; Platelet Count 211 K/uL (130-400); RDW Coefficient of Variation 11.8 % (11.5-14.5); RDW Standard Deviation 38.5 fL (36.4-46.3); Red Blood Count 4.45 M/uL (4.70-6.10); White Blood Count 6.16 K/ul (4.8-10.8)
[2024-06-13 04:36] LABS: Albumin Globulin Ratio 1.6 (0.9-2); Albumin Level 3.5 gm/dl (3.4-5.0); BUN Creatinine Ratio 19.6 (10-20); Bilirubin,Total 1.6 mg/dl (0.2-1.0); Calcium 8.1 mg/dl (8.6-10.3); Creatinine Clr Calc Pharmacy 214.8 ml/min; Globulin 2.2 gm/dl (2.5-4.0); Magnesium 1.9 mg/dl (1.7-2.4); Phosphorus 3.9 mg/dl (2.5-4.9); Potassium 3.2 mmol/L (3.5-5.1); Total Protein 5.7 gm/dl (6.0-8.3)
[2024-06-13] MEDS: POTASSIUM CHLORIDE CRTAB 20 MEQ TABCR PO STA (08:56)
[2024-06-13] MEDS: LANTUS PER UNIT CHARGE SC SCH (08:56)
[2024-06-13] MEDS ORDERED: LANTUS PER UNIT CHARGE SC SCH (09:00)
--- NOTE | 2024-06-13 13:37 | Discharge Summary ---
Discharge Summary Date of Service June 13, 2024 Principal Dx & Hospital Course #1 = Principal Diagnosis (1) DKA (diabetic ketoacidosis): (2) High anion gap metabolic acidosis: (3) ARON (acute kidney injury): Plan Mr. Maciel is a 24 year old gentleman with past medical history remarkable for DM Type 1 on an insulin pump and hypertension admitted with DKA. Diabetic Ketoacidosis Type 1 Diabetes Mellitus Presented with SOB, chest pain, nausea, diarrhea found to have significant hyperglycemia hgba1c of 10.9 pH <7, AG 30 Admitted to the ICU on admission -treated with an insulin drip, IV fluids -s/p NaHCO3 for pH<7 q4h VBG/pH, BMP, mag and phos with noted improvement AG subsequently closed Downgraded from the ICU on 06/11 Pt reported issues with his insulin pump likely injecting into scar tissue, it was held while hospitalized. Continued with ISS, can resume pump use on discharge with close followup with his storyboard artist. Likely pump was being injected into scar tissue, pt advised to try other infusion sites and he states he will also consider taking a break from his pump. manager audit, 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 On the day of discharge pt noted significant improvement in his symptoms. Possible Sepsis Pt presented with significant leukocytosis, tachycardia, tachypnea Can certainly be explained by DKA noted above However chest XRAY concerning for possible pneumonia CT chest unremarkable Blood Cx 1/4 bottles growing staph epidermidis and 1/4 growing gram negative bacilli, with biofire noting presence of mecA gene, staph aureus and staph epidermidis MRSA nares negative UA unremarkable Respiratory viral panel negative U tox positive for fentanyl and marijuana (he states he was given fentanyl in the ambulance, and smokes marijuana recreationally) Repeat Blood Cx x 2 sets NGTD x 48 hours Was on empiric Zosyn, switched to empiric Vancomycin in the setting of above Discontinued on discharge once repeat blood cultures returned negative at 48hours. Hypophosphatemia Repleted as needed Elevated liver enzymes T bili transiently elevated at 1.5 Liver US unremarkable except for noted steatosis Dietary changes, pcp followup ARON cr 1.78 on admission, likely in setting of DKA IV fluids as noted above Held nephrotoxic meds- pt's home lisnopril Restarted on lisinopril 10mg daily Noted improvement Normal on day of discharge HTN Reportedly on lisinopril Restarted on lisinopril 10mg daily PCP followup for continued followup Notes For Next Care Provider Medication Changes From Visit lisinopril 10mg daily, pcp can titrate up as needed for adequate control Admission HPI Per Admitting Provider Mr. Maciel is a 24 year old gentleman with past medical history remarkable for DMTI on insulin pump and hypertension presented to [facility] ED due to SOB. Patient states that over last 24 hours he has been more SOB. He states that he also experienced some nausea and diarrhea, but ultimately he began to feel like he could not catch his breath.He denies fevers, cough, myalgias, or other clear symptoms. He does not have a PCP. He has an storyboard artist who fills his insulin supply through [facility]. He states that he knows his regimen isn't as "tight as it should be" because his last A1C was reported 9% He notes that he did have difficult getting his pump to fit in the last 24 hours. Patient also reports chest pain that occurred shortly after the SOB started. He denies any increased thirst or polyuria. He also reports history of HTN. He does not take his lisinopril any longer as previously prescribed, stating that the supplements with "chagas" and "lion mulu" mushrooms. Roommate at bedside stating patient appears much improved in comparison to arrival. History limited 2/2 SOB Denies tobacco use; reports social etoh use; denies any other substance use In the ED, vitals were notable for BP of 140-200, HR of 110-130, and O2 sat of high 90s on RA . Imaging revealed CXR with LLL opacity, CT chest however unremarkable WBC 37 with shift, VBG <7.0, PCO2 37, NA 133, K 6.4 EKG sinus tachy, poor baseline likely 2/2 labored breathing qtc 447 ED interventions: 4 L IVF, ctx, azithro, bicarb 50meq Consultants: Assistant Engineer Patient to be admitted to ICU for further evaluation and management of severe DKA Admission Exam Per Admitting Provider GENERAL APPEARANCE: AxOx4, uncomfortable, labored breathing HEENT: NC, AT. MMM. EOMI, clear conjunctiva, oropharynx clear. NECK: Supple without lymphadenopathy. No stiffness or restricted ROM. HEART: tachycardic LUNGS: CTAB, labored, tachypneic ABDOMEN: Soft, nontender, nondistended with good bowel sounds heard. EXTREMITIES: Without cyanosis, clubbing or edema. NEUROLOGICAL: Grossly nonfocal. Alert and oriented, moving all 4 extremities. CN not formally tested but appear grossly intact Skin: Warm and dry without any rash. Discharge Exam General: Alert, oriented. No acute distress Skin: No noted rashes or bruises Psych: Appropriate mood and affect Neuro: No gross deficits HEENT: NC/AT CV: RRR Resp: Breath sounds clear bilaterally, no increased effort of breathing Abdomen: Soft, nontender Extremities: No edema in lower extremities bilaterally. Updated Medication List Medication Instructions Recorded Confirmed Type insulin aspart U-100 100 unit/mL 1 sliding scale dose continuous 06/10/24 06/10/24 History subcutaneous solution (Novolog subcutaneous infusion USEASDIRECTD U-100 Insulin aspart) lisinopril 10 mg tablet 10 mg PO QAM #30 tabs 06/13/24 Rx Hospital Stay Data Consultations 06/10/24 16:42 ED Decision to Admit Stat 06/10/24 17:41 Consult Assistant Engineer Routine Diagnostic Imagining Performed 06/10/24 17:15 CT chest diagnostic wo con Routine 06/12/24 09:27 US abdomen [US liver] Routine Chest X-Ray 06/10/24 14:18 XR chest 1V portable CLINICAL HISTORY: Shortness of breath. Diabetic ketoacidosis. COMPARISON STUDY: No previous studies for comparison. FINDINGS: There is no pneumothorax or pleural effusion. There is mild asymmetric left lower lung opacity. Right lung is clear. Cardiomediastinal silhouette is normal. IMPRESSION: Mild asymmetric left lower lung opacity. This may be technical. However, an infectious process could appear similar. Follow-up PA and lateral chest radiographs could be obtained for further evaluation. ACT 112: Negative or not required by law. Electronically signed by: Kyler Hardy M.D. 06/10/2024 3:[address] 06/10/24 17:15 EXAMINATION: Chest CT without CLINICAL HISTORY: Shortness of breath TECHNIQUE: Contiguous axial images were obtained through the chest without the use of intravenous contrast. Sagittal and coronal reformations are supplied. FINDINGS: The chest is well-expanded. No pneumothorax, opacification or pleural effusion. No dominant mass or adenopathy. No pleural or pericardial effusion. Heart size within normal limits. Trachea and mainstem bronchi patent. Possible hepatomegaly not fully within the [id number]. In bone windows, no acute osseous abnormality. No rib or sternal fracture. No chest wall inflammatory change. IMPRESSION: No CT evidence of an acute cardiopulmonary process. Electronically signed by Zarina Daily 06-10-2024 5:49 PM Liver Ultrasound 06/12/24 09:27 ABDOMINAL ULTRASOUND, RIGHT UPPER QUADRANT HISTORY: Elevated LFTs elevated liver enzymes. COMPARISON: Chest CT 06/10/2024 FINDINGS: Pancreas: The pancreas demonstrates a normal echotexture. Liver: Increased echogenicity measuring up to 17 cm. No mass or marginal nodularity. Gallbladder: No gallbladder wall thickening. No gallstones. CBD: 4 mm Right kidney: No hydronephrosis. IMPRESSION: 1. Unremarkable gallbladder. 2. No biliary ductal dilation. 3. Hepatic steatosis. ACT 112: Negative or not required by law. Electronically signed by: Maciel Ye M.D. 06/12/2024 10:54 AM Pending Results Patient Have Any Pending Studies at Discharge: No Discharge Instructions Given to Patient (Per Discharging Provider) Dov, You were admitted and treated for diabetic ketoacidosis. Your symptoms improved and you are now stable for discharge. It is recommended that you try other infusion sites for your pump to avoid scar tissue. Please keep close followup with your storyboard artist after discharge. There was concern for infection but your repeat blood cultures have not grown anything and it was likely that the previous blood cultures were contaminated. Please continue with the lisinopril prescribed to help with your blood pressure at home. Please also keep close follow up with your primary care provider after discharge. Please do not hesitate to come back to the emergency room if your symptoms worsen or return. It was a pleasure taking care of you while you were here. Total Time Total Time Spent Total Time Spent (In Minutes): 60
[2024-06-13 15:03] LABS: Fentanyl, Urine 4.1 ng/mL (<0.5); Marijuana Quant, GCMS Urine 148 ng/mL (<5); Norfentanyl, Urine 5.8 ng/mL (<0.5); medMATCH Fentanyl, Urine DNR; medMATCH Norfentanyl, Urine DNR
== END 2024-06-13 14:23 | disposition home or self-care (01) | DRG 871 ==
LOC: ED 14:08 → EDINP 17:07 → SUATTDRO 17:07 → 1E 18:17 → 2W 06-11 18:07